=== PATIENT | male | born 1990 | race Caucasian/White ===

== ENCOUNTER → 2018-01-02 | Outpatient (CLI) | payer MEDICAID ==
--- NOTE | 2018-01-02 10:42 | Diagnostic Imaging Report ---
INDICATION: Right scrotal pain. TECHNIQUE: Real-time, grayscale, color-flow, and duplex Doppler evaluation of the scrotum was performed. FINDINGS: The right testicle measures 2.5 x 0.9 x 1.7 cm and the left testicle measures 2.5 x 1.2 x 1.8 cm. Both testes demonstrate fairly homogeneous echotexture. No discrete testicular mass is identified. There is normal vascularity to both testes. This is likely a hernia in the right inguinal region containing fat. No definite herniated bowel loops are seen. No hydrocele is detected. The epididymides are unremarkable. IMPRESSION: 1. No evidence of testicular mass or vascular compromise. 2. Findings are suggestive of a right inguinal hernia containing fat. Dictated by: Dictated on workstation # [id number]
== END ==
LOC: RAD 08:32
PROVIDERS: ATTEND Nurse Practitioner Family
DX: N50.82 Scrotal pain (principal)
CPT/HCPCS: 76870

== ENCOUNTER 2018-01-25 05:21 | Outpatient (CLI) | payer MEDICAID ==
[~2018-01-25] VITALS: Ht 193 cm; Wt 139.7 kg
[2018-01-25] MEDS ORDERED: LORA10TA7 PO (13:28)
[2018-01-25] MEDS ORDERED: FLUT1DIS26 IH (13:28)
[2018-01-25] MEDS ORDERED: RT-ALBUINH IH (13:28)
[2018-01-25] MEDS ORDERED: MELO15TA39 PO (13:28)
[2018-01-25] MEDS ORDERED: BUPR300T43 PO (13:28)
[2018-01-25] MEDS ORDERED: OMEP20CA12 PO (13:28)
[2018-01-25] MEDS ORDERED: RISP1TAB3 PO (13:28)
[2018-01-28] MEDS ORDERED: HYDR-3820 PO (13:38)
== END 2018-01-25 13:48 ==
LOC: PREOP 05:21
PROVIDERS: ATTEND Surgery
DX: Z01.818 Encounter for other preprocedural examination (principal); K40.30 Unilateral inguinal hernia, with obstruction, without gangrene, not specified as recurrent

== ENCOUNTER 2018-01-28 07:20 | Day surgery (SDC) | payer MEDICAID ==
[~2018-01-28] VITALS: Ht 193 cm; Wt 139.7 kg
[~2018-01-28 07:20] MED LIST: BUPR300T43 PO; FLUT1DIS26 IH; LORA10TA7 PO; MELO15TA39 PO; OMEP20CA12 PO; RISP1TAB3 PO; RT-ALBUINH IH
--- OUTSIDE RECORDS SUMMARY | 2018-01-28 07:23 | XMS REPORT ---
Author Author NATE ALMEIDA [facility] eClinicalWorks Address Unknown Phone Unavailable Care Team Providers Care Car Designer Name Role Phone NATE ALMEIDA CP Unavailable Allergies No Known Allergies Problems Problem Type Condition Code Onset Dates Condition Status Problem Other general medical examination for administrative purposes V70.3 Active Assessment Dental examination Z01.20 Active Problem Contact dermatitis and other eczema, due to unspecified cause 692.9 Active Problem Asthma, unspecified, unspecified status 493.90 Active Problem Encounter for dental examination Z01.20 Active Problem Other follow-up examination V67.59 Active Problem Need for prophylactic vaccination and inoculation, Influenza V04.81 Active Problem Routine general medical examination at health care facility V70.0 Active Problem Pleurisy without mention of effusion or current tuberculosis 511.0 Active Medications No Known Medications Procedures Procedure Coding System Code Date Dental Outreach adjust balance CPT-4 DENOR January 19, 2016 AMALGAM-ONE SURFACE PRIMARY/PERM CPT-4 D2140 January 19, 2016 Results No Known Results Summary Purpose eClinicalWorks Submission
--- OUTSIDE RECORDS SUMMARY | 2018-01-28 07:23 | XMS REPORT ---
Author Author SUPRIYA SINGLETARY [facility] Address [address] [place] [address] Care Team Providers Care Thread Clipper Name Role Phone SUPRIYA SINGLETARY Unavailable PROBLEMS Type Condition ICD9-CM Code PRL17-PC Code Onset Dates Condition Status SNOMED Code Problem Right foot pain M79.671 Active 10031853 Problem Gastroesophageal reflux disease without esophagitis K21.9 Active 480872884 Problem Dysthymia F34.1 Active 18236649 Problem Encounter for dental examination Z01.20 Active 761774118 Problem Mild persistent asthma without complication J45.30 Active 047626308 Problem Over weight E66.3 Active 312486316 ALLERGIES Unknown Allergies SOCIAL HISTORY No smoking Hx information available PLAN OF CARE VITAL SIGNS MEDICATIONS Medication Instructions Dosage Frequency Start Date End Date Duration Status Wellbutrin XL 300 MG Orally Once a day in the morning 1 tablet 15 Apr, 2014 30 days Active Loratadine 10 mg Orally Once a day 1 tablet 24h 30 days Active RESULTS No Results PROCEDURES No Known procedures IMMUNIZATIONS No Known Immunizations
--- OUTSIDE RECORDS SUMMARY | 2018-01-28 07:23 | XMS REPORT ---
Author Author NGOC KOROMA [facility] eClinicalWorks Address Unknown Phone Unavailable Care Team Providers Care Desktop Analyst Name Role Phone NGOC KOROMA Unavailable Allergies No Known Allergies Problems Problem Type Condition Code Onset Dates Condition Status Assessment Weight increase R63.5 Active Problem Other general medical examination for administrative purposes V70.3 Active Assessment Non morbid obesity due to excess calories E66.09 Active Problem Contact dermatitis and other eczema, [...] tuberculosis 511.0 Active Medications No Known Medications Results No Known Results Summary Purpose eClinicalWorks Submission
--- OUTSIDE RECORDS SUMMARY | 2018-01-28 07:23 | XMS REPORT ---
Author Author RENETTA DENNIS [facility] eClinicalWorks Address Unknown Phone Unavailable Care Team Providers Care Energy Control Officer Name Role Phone RENETTA DENNIS CP Unavailable Allergies No Known Allergies Problems Problem Type Condition Code Onset Dates Condition Status Problem Other general medical examination for administrative purposes V70.3 Active Problem Contact dermatitis and other eczema, [...] effusion or current tuberculosis 511.0 Active Medications Medication Code System Code Instructions Start Date End Date Status Dosage Loratadine [facility][NOTE 2] [address]-08 10 MG Orally Once a day Jul 13, 2014 1 tablet Results No Known Results Summary Purpose eClinicalWorks Submission
--- OUTSIDE RECORDS SUMMARY | 2018-01-28 07:23 | XMS REPORT ---
Author Author NATE ALMEIDA [facility] eClinicalWorks Address Unknown Phone Unavailable Care Team Providers Care Winding Machine Operator Name Role Phone NATE ALMEIDA Unavailable Allergies, Adverse Reactions, Alerts Substance Reaction Event Type Penicillin V Potassium anaphylaxis Drug Allergy Problems Problem Type Condition Code Onset Dates Condition Status Assessment Dental examination V72.2 Active Problem Asthma, unspecified, unspecified status 493.90 Active Problem Routine general medical examination at health care facility V70.0 Active Problem Contact dermatitis and other eczema, due to unspecified cause 692.9 Active Problem Need for prophylactic vaccination and inoculation, Influenza V04.81 Active Problem Other general medical examination for administrative purposes V70.3 Active Problem Pleurisy without mention of effusion or current tuberculosis 511.0 Active Problem Other follow-up examination V67.59 Active Medications Medication Code System Code Instructions Start Date End Date Status Dosage Lotrisone [facility] [address]-92 1-0.05 % Externally Twice a day Mar 18, 2015 1 application to affected area Carafate [facility] [address]-90 1 gram May 06, 2014 1 tablet by Oral route 2 times per day ProAir HFA [facility] [address]-63 90 mcg/actuation May 06, 2014 inhale 2 puffs by Inhalation route every 6 hours as needed PRN shortness of breath/ cough Wellbutrin XL [facility] [address]-23 150 mg May 06, 2014 2 Tablet by Oral route 1 time per day Loratadine [facility] [address]-40 10 MG Orally Once a day Jul 13, [address] [facility] [address]-71 15 mg May 26, 2014 take 1 tablet (15 mg) by oral route once daily Omeprazole [facility] [address]-73 20 mg 1 DRC orally once a day May 06, 2014 1 capsule by Oral route 1 time per day Antacid Double Strength [facility] [address]368 400-400-40 mg Mar 07, 2013 1 Tablet 4 times per day Advair Diskus [facility] [address]-01 250-50 MCG/DOSE Inhalation Twice a day January 26, 2015 1 puff Tylenol Extra Strength [facility] [address]-79 500 MG Orally 3 times a day prn pain or headache Sep 16, 2013 Take 1-[address] [facility] [address]-17 1-5 % September 29, 2014 1 jenny by Topical route 2 times per day Ibuprofen [facility] [address]-83 600 MG Orally every 6 hrs as needed January 04, 2014 take [address] [facility] [address]-17 1 MG Orally Once a day at bedtime Aug 25, 2014 1 Tablet Procedures Procedure Coding System Code Date INTRAORL-PERIAPICAL EA ADD FILM CPT-4 D0230 Apr 19, 2015 LTD ORAL EVALUATION - PROBLEM FOCUS CPT-4 D0140 Apr 19, 2015 Vital Signs Date/Time: Apr 19, 2015 Blood Pressure Diastolic 69 mmHg Blood Pressure Systolic 113 mmHg Results No Known Results Summary Purpose eClinicalWorks Submission
--- OUTSIDE RECORDS SUMMARY | 2018-01-28 07:23 | XMS REPORT ---
Author Author RENETTA DENNIS [facility] eClinicalWorks Address Unknown Phone Unavailable Care Team Providers Care Information Systems Security Analyst Name Role Phone RENETTA DENNIS Unavailable Allergies, Adverse Reactions, Alerts Substance Reaction Event Type Penicillin V Potassium anaphylaxis Drug Allergy Problems Problem Type Condition Code Onset Dates Condition Status Assessment Wellness examination Z00.00 Active Problem Other general medical examination for administrative purposes V70.3 Active Assessment High risk medication use Z79.899 Active Assessment Encounter for immunization Z23 Active Problem Contact dermatitis and other eczema, [...] Instructions Start Date End Date Status Dosage Omeprazole [facility] [address]-45 20 MG Orally Once a day May 06, 2014 1 capsule Risperidone [facility] [address]-69 1 MG Orally Once a day at bedtime Aug 25, 2014 1 Tablet Wellbutrin XL [facility] [address]-39 300 MG Orally Once a day May 06, 2014 1 tablet in the morning Meloxicam [facility] [address]-44 15 MG Orally Once a day May 26, 2014 take 1 tablet Carafate [facility] [address]-19 1 gram Orally Twice a day May 06, 2014 1 tablet Loratadine [facility] [address]-00 10 MG Orally Once a day Jul 13, 2014 1 tablet Advair Diskus [facility] [address]-78 250-50 MCG/DOSE Inhalation Twice a day January 26, 2015 1 puff Benzaclin [facility] [address]-55 1-5 % Externally 2 times a day September 29, 2014 1 jenny by Topical route 2 times per day Procedures Procedure Coding System Code Date COMPLETE CBC W/AUTO DIFF WBC CPT-4 94448 Aug 27, 2015 COMPREHEN METABOLIC PANEL CPT-4 71504 Aug 27, 2015 Preventive Care New Pt. Age 18-39 CPT-4 36015 Aug 27, 2015 SINGLE IMMUNIZATION ADMIN CPT-4 00469 Aug 27, 2015 ASSAY THYROID STIM HORMONE CPT-4 85423 Aug 27, 2015 LIPID PANEL CPT-4 20004 Aug 27, 2015 TDAP (BOOSTRIX) CPT-4 61434 Aug 27, 2015 VENIPUNCT, ROUTINE* CPT-4 39001 Aug 27, 2015 Vital Signs Date/Time: Aug 27, 2015 Temperature 97.3 F Weight 274.2 lbs Height 75 in BMI 34.27 Index Blood Pressure Diastolic 70 mmHg Blood Pressure Systolic 120 mmHg Cardiac Monitoring Heart Rate 80 bpm Results Name Result Date Reference Range Unit Abnormality Flag ROUTINE VENIPUNCTURE Immunizations Vaccine Administration Date TDAP (BOOSTRIX) Aug 27, 2015 Summary Purpose eClinicalWorks Submission
--- OUTSIDE RECORDS SUMMARY | 2018-01-28 07:23 | XMS REPORT ---
Author Author NATE ALMEIDA Organization [facility] Address [address] [place] [address] Care Team Providers Care Income Tax Expert Name Role Phone NATE ALMEIDA Unavailable PROBLEMS Type Condition ICD9-CM Code VQJ34-QW Code Onset Dates Condition Status SNOMED Code Problem Mild persistent asthma without complication J45.30 Active 108502046 Problem Dysthymia F34.1 Active 88612684 Problem Over weight E66.3 Active 951343884 Problem Encounter for dental examination Z01.20 Active 413362848 Problem Gastroesophageal reflux disease without esophagitis K21.9 Active 376026302 Problem Right foot pain M79.671 Active 00626688 ALLERGIES Unknown Allergies SOCIAL HISTORY No smoking Hx information available PLAN OF CARE Activity Details Follow Up Recall Reason: VITAL SIGNS MEDICATIONS Unknown Medications RESULTS No Results PROCEDURES Procedure Date Ordered Related Diagnosis Body Site AMALGAM-ONE SURFACE PRIMARY/PERM Jul 11, 2016 Billing Notes on claim Jul 11, 2016 Dental Outreach adjust balance Jul 11, 2016 IMMUNIZATIONS No Known Immunizations
--- OUTSIDE RECORDS SUMMARY | 2018-01-28 07:24 | XMS REPORT ---
Author Author SUPRIYA SINGLETARY Organization eClinicalWorks Address Unknown Phone Unavailable Care Team Providers Care Content Strategy Lead Name Role Phone SUPRIYA SINGLETARY CP Unavailable Allergies No Known Allergies Problems [...] Instructions Start Date End Date Status Dosage Sucralfate [facility] 04451824958 1 GM Orally 2 times a day, NEEDS APPT BEFORE ANY FURTHER REFILLS 1 tablet Omeprazole [facility] [address]-51 20 mg Orally Once a day, NEEDS APPT BEFORE ANY FURTHER REFILLS 1 tablet Advair Diskus [facility] 22914030231 250-50 MCG/DOSE Inhalation Twice a day, NEEDS APPT BEFORE ANY FURTHER REFILLS 1 puff Meloxicam [facility] 33725610968 15 MG Orally Once a day, NEEDS APPT BEFORE ANY FURTHER REFILLS take 1 tablet Results No Known Results Summary Purpose eClinicalWorks Submission
--- OUTSIDE RECORDS SUMMARY | 2018-01-28 07:24 | XMS REPORT ---
Author Author RENETTA DENNIS [facility] eClinicalWorks Address Unknown Phone Unavailable Care Team Providers Care Stave Cutting Supervisor Name Role Phone RENETTA DENNIS CP Unavailable Allergies No Known Allergies Problems Problem Type Condition Code Onset Dates Condition Status Problem Pleurisy without mention of effusion or current tuberculosis 511.0 Active Problem Asthma, unspecified, unspecified status 493.90 Active Problem Routine general medical examination at health care facility V70.0 Active Problem Dysthymia F34.1 Active Problem Gastroesophageal reflux disease without esophagitis K21.9 Active Problem Mild persistent asthma without complication J45.30 Active Problem Encounter for dental examination Z01.20 Active Problem Contact dermatitis and other eczema, due to unspecified cause 692.9 Active Problem Right foot pain M79.671 Active Problem Over weight E66.3 Active Problem Other general medical examination for administrative purposes V70.3 Active Problem Need for prophylactic vaccination and inoculation, Influenza V04.81 Active Problem Other follow-up examination V67.59 Active Medications Medication Code System Code Instructions Start Date End Date Status Dosage Acanya [facility] [address]-07 1.2-2.5 % Externally twice a day Mar 06, 2016 1 application to affected area Results No Known Results Summary Purpose eClinicalWorks Submission
--- OUTSIDE RECORDS SUMMARY | 2018-01-28 07:24 | XMS REPORT ---
Author Author RENETTA DENNIS [facility] eClinicalWorks Address Unknown Phone Unavailable Care Team Providers Care Geriatric Case Manager Name Role Phone RENETTA DENNIS CP Unavailable [...] Instructions Start Date End Date Status Dosage Risperidone [facility] 15418881561 1 MG Orally Once a day at bedtime, NEEDS APPT BEFORE ANY FURTHER REFILLS 1 Tablet Sucralfate [facility] 26106094805 1 GM Orally 2 times a day, NEEDS APPT BEFORE ANY FURTHER REFILLS 1 tablet Advair Diskus [facility] 88441718653 250-50 MCG/DOSE Inhalation Twice a day, NEEDS APPT BEFORE ANY FURTHER REFILLS 1 puff Meloxicam [facility] 82833003172 15 MG Orally Once a day, NEEDS APPT BEFORE ANY FURTHER REFILLS take 1 tablet Omeprazole [facility] [address]-44 20 mg Orally Once a day, NEEDS APPT BEFORE ANY FURTHER REFILLS 1 tablet Results No Known Results Summary Purpose eClinicalWorks Submission
--- OUTSIDE RECORDS SUMMARY | 2018-01-28 07:24 | XMS REPORT ---
Author Author SUPRIYA SINGLETARY Organization eClinicalWorks Address Unknown Phone Unavailable Care Team Providers Care Hydrostatic Tubing Tester Name Role Phone SUPRIYA SINGLETARY CP Unavailable [...] M79.671 Active Problem Over weight E66.3 Active Assessment Dysthymia F34.1 Active Problem Other general medical examination for administrative purposes V70.3 Active Problem Need for prophylactic vaccination and inoculation, Influenza V04.81 Active Problem Other follow-up examination V67.59 Active Medications Medication Code System Code Instructions Start Date End Date Status Dosage Risperidone [facility] 69026246468 1 MG Orally Once a day at bedtime 1 Tablet Benzaclin [facility] [address]-94 1-5 % Externally 2 times a day September 29, 2014 1 jenny by Topical route 2 times per day Results No Known Results Summary Purpose eClinicalWorks Submission
--- OUTSIDE RECORDS SUMMARY | 2018-01-28 07:24 | XMS REPORT ---
Author NILESH Ashley Organization eClinicalWorks Address Unknown Phone Unavailable Care Team Providers Care Singer And Unloader Name Role Phone NILESH LAMB CP Unavailable Allergies, Adverse Reactions, Alerts Substance Reaction Event Type Penicillin V Potassium anaphylaxis Drug Allergy Problems Problem Type Condition Code Onset Dates Condition Status Problem Other general medical examination for administrative purposes V70.3 Active Assessment Encounter for dental examination and cleaning with abnormal findings Z01.21 Active Problem Contact dermatitis and other eczema, [...] Start Date End Date Status Dosage Sucralfate [facility] [address]-95 1 GM/10ML Orally Twice a day 10 ml Procedures Procedure Coding System Code Date TOPICAL FLUORIDE VARNISH CPT-4 D1206 November 09, 2015 PROPHYLAXIS - ADULT CPT-4 D1110 November 09, 2015 Results No Known Results Summary Purpose eClinicalWorks Submission
--- OUTSIDE RECORDS SUMMARY | 2018-01-28 07:24 | XMS REPORT ---
Author Author SUPRIYA SINGLETARY [facility] Address [address] [place] [address] Care Team Providers Care Tire Layer Name Role Phone SUPRIYA SINGLETARY Unavailable PROBLEMS Type Condition ICD9-CM Code BPU95-GX Code Onset Dates Condition Status SNOMED Code Problem Dysthymia F34.1 Active 58743317 Problem Right foot pain M79.671 Active 25882379 Problem Over weight E66.3 Active 961643772 Problem Gastroesophageal reflux disease without esophagitis K21.9 Active 127421040 Problem Mild persistent asthma without complication J45.30 Active 389517332 ALLERGIES No Information ENCOUNTERS Encounter Location Date Diagnosis [facility] [id number] [place] [address] [id number] 10 Oct, 2017 Encounter for dental exam and cleaning w/o abnormal findings Z01.20 [place] [id number] [place] [address] [id number] 09 Oct, 2017 Acute nasopharyngitis J00 [place] [address] [id number] 13 Aug, 2017 Mild persistent asthma without complication J45.30 ; Dysthymia F34.1 and Gastroesophageal reflux disease without esophagitis K21.9 [place] [id number] [place] [address] [id number] 08 Aug, 2017 Right foot pain M79.671 ; Encounter for screening for lipoid disorders Z13.220 and Encounter for screening for cardiovascular disorders Z13.6 [place] [id number] [place] [address] [id number] 15 Jul, 2017 [facility] [address] [id number] 15 Jul, [id number] [place] [address] [id number] 05 Jun, 2017 Dental examination Z01.20 [facility] [address] [id number][place] [phone] Jun, Dental examination Z01.20 [facility] [address] [id number], [place] [id number] May, Encounter for immunization Z23 [facility] [address] [id number], [place] [address] Feb, [facility] [id number] [place] [address] [id number] Feb, Encounter for dental examination and cleaning without abnormal findings Z01.20 [facility] [address] [id number] [place] [address]27 [phone] Feb, [facility] [address] [id number], [place] [id number] Feb, Right foot pain M79.671 ; Dysthymia F34.1 ; Mild persistent asthma without complication J45.30 ; Gastroesophageal reflux disease without esophagitis K21.9 ; Encounter for screening for lipoid disorders Z13.220 ; Encounter for screening for cardiovascular disorders Z13.6 and Acne vulgaris L70.[address] [id number][place] [id number] Jan, Dental examination Z01.[address] [id number], [place] [phone] November, Dental examination Z01.20 [facility] [address] [id number], [place] [id number] November, Encounter for dental examination and cleaning without abnormal findings Z01.20 [facility] [address] [id number], [place] [id number] Aug, Dysthymia F34.1 ; Mild persistent asthma without complication J45.30 and Gastroesophageal reflux disease without esophagitis K21.9 [facility] [address] [id number], [place] [id number] Jul, Encounter for dental examination and cleaning without abnormal findings Z01.20 [facility] [address] [id number], [place] [id number] Jul, Physical exam, routine Z00.00 [facility] [place] [address] [id number], [place] [phone] Jul, Dysthymia F34.1 [facility] [address] [id number], [place] [phone] Jun, Dental examination Z01.20 [facility] [place] [id number] [place] [address] [id number] Jun, [facility] [address]65[place] [id number] Apr, Encounter for dental examination and cleaning without abnormal findings Z01.20 [facility] [address] [id number], [place] [phone] Apr, Encounter for dental examination Z01.20 [facility] [place] [id number] [place] [address] [id number] Apr, Encounter for immunization Z23 [facility] [address] [place] [id number] [place] [address] [id number] Apr, [facility] [place] [address] [place] [id number] [place] [address] [id number] Apr, Right foot pain M79.671 [facility] [id number] [place] [address] [id number] Feb, [facility] [address] [place] [id number] [place] [address] [id number] Feb, Dysthymia F34.1 [facility] [id number] [place] [address] [id number] Feb, Mild persistent asthma without complication J45.30 ; Dysthymia F34.1 ; Gastroesophageal reflux disease without esophagitis K21.9 ; Right foot pain M79.671 and Over weight E66.3 [facility] [id number] [place] [address] [id number] Feb, [facility] [address] [id number] [place] [address] [id number] Feb, [facility] [address] [place] [id number] [place] [address] [id number] Jan, [facility] [address] [id number][place] [id number] Jan, Encounter for dental examination and cleaning without abnormal findings Z01.20 [facility] [place] [id number], [place] [phone] Jan, [facility] [address] [id number], [place] [id number] Dec, Dental examination Z01.20 [facility] [address] [address] [id number], [place] [id number] Oct, Dental examination Z01.20 [facility] [address] [place] [id number] [place] [address] [id number] Oct, Encounter for dental examination and cleaning with abnormal findings Z01.21 [facility] [id number] [place] [address] [id number] Sep, [facility] [address] [id number] [place] [address] [id number] Aug, [facility] [id number] [place] [address] [id number] Aug, Elevated fasting glucose R73.01 [facility] [address] [place] [id number] [place] [address] [id number] 10 Aug, 2015 Elevated fasting glucose R73.01 [place] [address] [place] [id number] [place] [address] [id number] 08 Aug, 2015 Non morbid obesity due to excess calories E66.09 and Weight increase R63.5 [facility] [address] [place] [id number] [place] [address] [id number] 05 Aug, 2015 High risk medication use Z79.899 ; Wellness examination Z00.00 and Encounter for immunization Z23 [facility] [address] [place] [id number] [place] [address] [id number] Jul, [facility] [address] [place] [id number] [place] [address] [id number] Jun, [facility] [id number] [place] [address] [phone] May, [facility] [address] [id number], [place] [id number] May, [facility] [address] [id number], [place] [id number] Apr, [facility] [address] [id number], [place] [id number] Apr, Dental examination Z01.[address] [facility] [address] [id number], [place] [id number] Mar, Dental examination V72.2 [facility] [address] [id number], [place] [id number] Feb, [facility] [address] [id number], [place] [id number] Feb, Tinea corporis 110.5 [facility] [address] [id number], [place] [id number] Feb, [facility] [address] [id number], [place] [id number] Jan, [facility] [address] [id number], [place] [id number] Jan, [facility] [address] [id number], [place] [id number] November, [facility] [address] [id number], [place] [id number] November, [facility] [address] [id number], [place] [id number] November, [facility] [address] [facility] [id number], [place] [address] Oct, [facility] [address] [facility] [id number], [place] [address] Oct, [facility] [address] [id number], [place] [id number] Sep, [facility] [address] [facility] [id number], [place] [address] Sep, [facility] [address] [id number], [place] [id number] Aug, [facility] [place] [facility] [address] [facility] [id number] [place] [address] Aug, [facility] [address] [id number] [place] [id number] Jul, [facility] [place] [facility] [address] [facility] [id number] [place] [address] Jul, [facility] [address] [facility] [id number] [place] [id number] Jun, [facility] [place] [facility] [address] [facility] [id number] [place] [address] 14[address] Jun, [facility] [address] [facility] [id number] [place] [id number] May, [facility] [place] [facility] [address] [facility] [id number] [place] [address] May, [facility] [place] [facility] [address] [place] [address] Apr, [facility] [address] [id number] [place] [id number] Apr, [facility] [place] [facility] [address] [facility] [id number], [place] [address] Apr, [facility] [address] [facility] [id number], [place] [id number] Apr, [facility] [address] [facility] [id number], [place] [id number] Jan, [facility] [place] [facility] [address] [facility] [id number], [place] [address] 25[address] Jan, [facility] [address] [facility] [id number] [place] [id number] Dec, [facility] [place] [facility] [address] [facility] [id number], [place] [address] Dec, [facility] [address] [facility] [id number] [place] [id number] November, [facility] [place] [facility] [address] [facility] [id number], [place] [address] November, [facility] [address] [id number] [place] [id number] November, [facility] [address] [facility] [id number], [place] [address] November, [facility] [address] [id number] [place] [id number] Aug, [facility] [place] [facility] [address] [facility] [id number], [place] [address] Aug, [facility] [address] [id number] [place] [id number] Jul, [facility] [place] [facility] [address] [facility] [id number], [place] [address] Jul, [facility] [address] [facility] [id number] [place] [id number] Jul, [facility] [place] [facility] [address]00565100[place], [place] [address] Jul, [facility] [address] [facility] [id number] [place] [id number] Jun, [facility] [place] [facility] [address]00565100[place], [place] [address] Jun, [facility] [address] [facility] [id number] [place] [id number] Jun, [facility] [place] [facility] [address] [facility] [id number], [place] [address]- [address] Jun, [facility] [address] [facility] [id number], [place] [address] Apr, [facility] [place] [facility] [address] [facility] [id number], [place] [address] 3[address] Apr, [facility] [address] [facility] [id number], [place] [id number] Apr, [facility] [place] [facility] [address] [facility] [id number], [place] [address] 119[address] Apr, [facility] [place] [facility] [address] [facility] [id number], [place] [address]- [address] 18 Apr, 2013 [facility] [address] [id number] [place] [id number] 18 Apr, 2013 [facility] [place] [facility] [address] [id number], [place] [address] 15 Apr, 2013 [facility] [address] [id number] [place] [id number] 15 Apr, 2013 [facility] [address] [id number] [place] [id number] 05 Mar, 2013 [facility] [address] [id number] [place] [id number] Feb, [facility] [address] [id number] [place] [id number] Feb, [facility] [place] [facility] [address] [facility] [id number], [place] [address]- [address] May, [facility] [place] [facility] [address] [place] [id number] [place] [address]- 8069 24 Jun, 2010 [facility] [place] [facility] [address] [facility] [id number], [place] [address]- 9[address] May, [facility] [place] [facility] [address] [id number], [place] [address]- 8[address] 27 Apr, 2010 [facility] [place] [facility] [address] [place] [id number], [place] 304[place]- [address] Apr, [facility] [place] [facility] [address]65100[place], [place] [address]- 39[address] 19 Apr, 2010 [facility] [place] [facility] [address] [facility] [id number], [place] [address]- [address] 11 Apr, 2010 [facility] [place] [facility] [address] [facility] [id number], [place] [address]- 6[address] 15 Jun, 2009 [facility] [place] [facility] [address] [facility] [id number], [place] [address]- 6[address] 15 Jun, 2009 [facility] [place] [facility] [address] [place] [address] [id number], [place] [address] 08[address] Jun, [facility] [address] [facility] [id number] [place] [address] Jun, IMMUNIZATIONS Vaccine Route Administration Date Status FLUARIX QUAD (3 AND UP) 2016 IM Intramuscular May 24, 2017 Administered SOCIAL HISTORY Never Assessed REASON FOR VISIT Flu Shot Saima TOLBERT PLAN OF CARE VITAL SIGNS MEDICATIONS No Known Medications RESULTS No Results PROCEDURES Procedure Date Ordered Result Body Site FLUARIX QUAD (3 AND UP) 2017 May 24, 2017 SINGLE IMMUNIZATION ADMIN May 24, 2017 INSTRUCTIONS MEDICATIONS ADMINISTERED No Known Medications MEDICAL (GENERAL) HISTORY Type Description Date Medical History seasonal allergies Medical History acid reflux Medical History anxiety Medical History depression Medical History attention deficit hyperactivity disorder Medical History mild mental retardation Medical History Asthma Surgical History orthopedic surgery-right foot, corrective surgery
--- OUTSIDE RECORDS SUMMARY | 2018-01-28 07:24 | XMS REPORT ---
Author Author RENETTA DENNIS [facility] eClinicalWorks Address Unknown Phone Unavailable Care Team Providers Care [facility] Psychiatrist Name Role Phone RENETTA DENNIS CP Unavailable [...] Instructions Start Date End Date Status Dosage Wellbutrin XL [facility] [address]-89 300 MG Orally Once a day May 06, 2014 1 tablet in the morning Results No Known Results Summary Purpose eClinicalWorks Submission
--- OUTSIDE RECORDS SUMMARY | 2018-01-28 07:24 | XMS REPORT ---
Author Author NATE ALMEIDA Organization eClinicalWorks Address Unknown Phone Unavailable Care Team Providers Care Dog Food Shredder Operator Name Role Phone NATE ALMEIDA CP Unavailable [...] Medications Procedures Procedure Coding System Code Date BITEWINGS - FOUR FILMS CPT-4 D0274 November 09, 2015 COMP ORAL EVALUATION - NEW/EST PT CPT-4 D0150 November 09, 2015 Results No Known Results Summary Purpose eClinicalWorks Submission
--- OUTSIDE RECORDS SUMMARY | 2018-01-28 07:24 | XMS REPORT ---
Author Author SUPRIYA SINGLETARY Organization e[employer] Address Unknown Phone Unavailable Care Team Providers Care Certified Nursing Attendant Name Role Phone SUPRIYA SINGLETARY CP Unavailable [...] Instructions Start Date End Date Status Dosage Ibuprofen [facility] [address]-16 600 MG Orally 2 times a day PRN January 04, 2014 1 tablet Results No Known Results Summary Purpose eClinicalWorks Submission
--- OUTSIDE RECORDS SUMMARY | 2018-01-28 07:24 | XMS REPORT ---
Author Author RENETTA DENNIS [facility] eClinicalWorks Address Unknown Phone Unavailable Care Team Providers Care Load Manager Name Role Phone RENETTA DENNIS CP [...] Start Date End Date Status Dosage Loratadine [facility] 56760059850 10 MG Orally Once a day 1 tablet Results No Known Results Summary Purpose eClinicalWorks Submission
--- OUTSIDE RECORDS SUMMARY | 2018-01-28 07:25 | XMS REPORT ---
Author Author NATE ALMEIDA [facility] eClinicalWorks Address Unknown Phone Unavailable Care Team Providers Care Senior Policy Analyst Name Role Phone NATE ALMEIDA Unavailable Allergies No Known Allergies Problems Problem [...] Active Problem Over weight E66.3 Active Assessment Encounter for dental examination Z01.20 Active Problem Other general medical examination for administrative purposes V70.3 Active Problem Need for prophylactic vaccination and inoculation, Influenza V04.81 Active Problem Other follow-up examination V67.59 Active Medications Medication Code System Code Instructions Start Date End Date Status Dosage ProAir HFA [facility] [address]-90 90 mcg/actuation May 06, 2014 inhale 2 puffs by Inhalation route every 6 hours as needed PRN shortness of breath/ cough Wellbutrin XL [facility] 49035937647 300 MG Orally Once a day 1 tablet in the morning Omeprazole [facility] [address]-97 20 mg Orally Once a day, NEEDS APPT BEFORE ANY FURTHER REFILLS 1 tablet Acanya [facility] [address]-61 1.2-2.5 % Externally twice a day Mar 06, 2016 1 application to affected area Risperidone [facility] 87183481900 1 MG Orally Once a day at bedtime 1 Tablet Ibuprofen [facility] [address]-22 600 MG Orally 2 times a day PRN January 04, 2014 1 tablet Advair Diskus [facility] 63613916714 250-50 MCG/DOSE Inhalation Twice a day, NEEDS APPT BEFORE ANY FURTHER REFILLS 1 puff Loratadine [facility] 20229638801 10 MG Orally Once a day 1 tablet Meloxicam [facility] 14553347725 15 MG Orally Once a day, NEEDS APPT BEFORE ANY FURTHER REFILLS May 25, 2016 take 1 tablet Procedures Procedure Coding System Code Date INTRAORL-PERIAPICAL 1 FILM 56263 CPT-4 D0220 May 18, 2016 INTRAORL-PERIAPICAL 1 FILM 19096 CPT-4 D0220 May 18, 2016 PERIODIC ORAL EXAMINATION CPT-4 D0120 May 18, 2016 BITEWINGS - FOUR FILMS CPT-4 D0274 May 18, 2016 INTRAORL-PERIAPICAL 1 FILM 98445 CPT-4 D0220 May 18, 2016 Results No Known Results Summary Purpose eClinicalWorks Submission
--- OUTSIDE RECORDS SUMMARY | 2018-01-28 07:25 | XMS REPORT ---
Author Author NILESH LAMB Organization [facility] Address [address] [place] [address] Phone Unavailable Care Team Providers Care Tafe Lecturer Name Role Phone NILESH LAMB Unavailable Unavailable PROBLEMS Type Condition ICD9-CM Code EFK40-CC Code Onset Dates Condition Status SNOMED Code Problem Dysthymia F34.1 Active 65164116 Problem Right foot pain M79.671 Active 81130435 Problem Over weight E66.3 Active 257588920 Problem Gastroesophageal reflux disease without esophagitis K21.9 Active 169889204 Problem Mild persistent asthma without complication J45.30 Active 176975320 ALLERGIES Substance Reaction Event Type Date Status Penicillin V Potassium anaphylaxis Drug Allergy Feb, Active ENCOUNTERS Encounter Location Date Diagnosis [facility] [id number] [place] [address] [id number] Oct, Encounter for dental exam and cleaning w/o abnormal findings Z01.20 [place] [id number] [place] [address] [id number] 09 Oct, 2017 Acute nasopharyngitis J00 [facility] [id number] [place] [address] [id number] 13 Aug, 2017 Mild persistent asthma without complication J45.30 ; Dysthymia F34.1 and Gastroesophageal reflux disease without esophagitis K21.9 [place] [id number] [place] [address] [id number] 08 Aug, 2017 Right foot pain M79.671 ; Encounter for screening for lipoid disorders Z13.220 and Encounter for screening for cardiovascular disorders Z13.[address] [place] [address] [id number] 15 Jul, 2017 [facility] [id number] [place] [address] [id number] 15 Jul, [address] [id number][place] [address] Jun, Dental examination Z01.20 [facility] [address] [id number][place] [phone] Jun, Dental examination Z01.20 [facility] [address] [id number][place] [phone] May, Encounter for immunization Z23 [facility] [place] [address] [id number], [place] [address] Feb, [facility] [address] [id number][place] [id number] Feb, Encounter for dental examination and cleaning without abnormal findings Z01.20 [facility] [place] [address] [id number], [place] [address] 2546 Feb, [facility] [address] [id number][place] [address] Feb, Right foot pain M79.671 ; Dysthymia F34.1 ; Mild persistent asthma without complication J45.30 ; Gastroesophageal reflux disease without esophagitis K21.9 ; Encounter for screening for lipoid disorders Z13.220 ; Encounter for screening for cardiovascular disorders Z13.6 and Acne vulgaris L70.[address] [id number][place] [phone] Jan, Dental examination Z01.[address] [id number], [place] [address]8566[address] November, Dental examination Z01.20 [facility] [address] [id number][place] [id number] November, Encounter for dental examination and cleaning without abnormal findings Z01.20 [facility] [address] [id number][place] [address] Aug, Dysthymia F34.1 ; Mild persistent asthma without complication J45.30 and Gastroesophageal reflux disease without esophagitis K21.9 [facility] [address] [id number][place] [address] Jul, Encounter for dental examination and cleaning without abnormal findings Z01.20 [facility] [address] [id number], [place] [id number] Jul, Physical exam, routine Z00.00 [facility] [address] [id number], [place] [address] Jul, Dysthymia F34.1 [facility] [address] [address] [id number], [place] [phone] Jun, Dental examination Z01.20 [facility] [place] [address] [id number], [place] [address] Jun, [facility] [address] [id number], [place] [address] Apr, Encounter for dental examination Z01.20 [facility] [address] [id number], [place] [address] Apr, Encounter for dental examination and cleaning without abnormal findings Z01.20 [facility] [address] [id number], [place] [id number] Apr, Encounter for immunization Z23 [facility] [id number] [place] [address] [id number] Apr, [facility] [id number] [place] [address] [id number] Apr, Right foot pain M79.671 [facility] [address] [id number] [place] [address] [id number] Feb, [facility] [address] [id number], [place] [id number] Feb, Dysthymia F34.1 [facility] [address] [id number], [place] [phone] Feb, Mild persistent asthma without complication J45.30 ; Dysthymia F34.1 ; Gastroesophageal reflux disease without esophagitis K21.9 ; Right foot pain M79.671 and Over weight E66.3 [facility] [address] [id number] [place] [address] [id number] Feb, [facility] [address] [id number], [place] [phone] Feb, [facility] [id number] [place] [address] [id number] Jan, [facility] [address]005[address] [address] Jan, Encounter for dental examination and cleaning without abnormal findings Z01.20 [facility] [place] [id number], [place] [phone] Jan, [facility] [address] [facility] [address] [id number], [place] [phone] Dec, Dental examination Z01.20 [facility] [id number] [place] [address] [id number] Oct, Dental examination Z01.20 [facility] [address] [place] [address] [id number] Oct, Encounter for dental examination and cleaning with abnormal findings Z01.21 [facility] [id number] [place] [address] [id number] Sep, [facility] [id number] [place] [address] [id number] Aug, [facility] [id number] [place] [address] [phone] Aug, Elevated fasting glucose R73.01 [facility] [id number] [place] [address] [id number] 10 Aug, 2015 Elevated fasting glucose R73.01 [place] [id number] [place] [address] [id number] 08 Aug, 2015 Non morbid obesity due to excess calories E66.09 and Weight increase R63.5 [facility] [id number] [place] [address] [id number] 05 Aug, 2015 High risk medication use Z79.899 ; Wellness examination Z00.00 and Encounter for immunization Z23 [facility] [id number] [place] [address] [id number] Jul, [facility] [id number] [place] [address] [id number] Jun, [facility] [place] [id number] [place] [address] May, [facility] [address] [id number], [place] [phone] May, [facility] [address] [id number], [place] [id number] Apr, [facility] [address] [id number], [place] [phone] Apr, Dental examination Z01.[address] [facility] [address] [id number], [place] [phone] Mar, Dental examination V72.2 [facility] [address] [id number], [place] [id number] Feb, [facility] [address] [id number], [place] [phone] Feb, Tinea corporis 110.5 [facility] [address] [id number], [place] [id number] Feb, [facility] [address] [id number], [place] [id number] Jan, [facility] [address] [id number], [place] [id number] Jan, [facility] [address] [id number], [place] [phone] November, [facility] [address] [id number], [place] [phone] November, [facility] [address] [id number], [place] 538[address]18[address] November, [facility] [place] [facility] [address] [facility] [id number][place] [address] Oct, [facility] [place] [facility] [address] [facility] [id number][place] [address] Oct, [facility] [address] [id number], [place] [phone] Sep, [facility] [place] [facility] [address] [facility] [id number], [place] [address] Sep, [facility] [address] [id number], [place] [id number] Aug, [facility] [place] [facility] [address] [facility] [id number] [place] [address] Aug, [facility] [address] [id number], [place] [id number] Jul, [facility] [place] [facility] [address] [facility] [id number] [address] Jul, [facility] [address] [facility] [id number], [place] 558291853 Jun, [facility] [place] [facility] [address] [facility] [id number], [place] [address] Jun, [facility] [address] [facility] [id number], [place] [phone] May, [facility] [place] [facility] [address] [facility] [id number][place] [address] May, [facility] [place] [facility] [address]00565100[place], [place] [address] Apr, [facility] [address] [facility] [id number], [place] [id number] Apr, [facility] [place] [facility] [address] [facility] [id number][place] [address] 59[address] Apr, [facility] [address] [facility] [id number], [place] [phone] Apr, [facility] [address] [facility] [id number], [place] 703305440 Jan, [facility] [place] [facility] [address] [facility] [id number][place] [address]- [address] Jan, [facility] [address] [id number], [place] [id number] Dec, [facility] [place] [facility] [address] [facility] [id number], [place] [address]- 269[address] Dec, [facility] [address] [facility] [id number], [place] [id number] November, [facility] [place] [facility] [address] [facility] [id number] [address]- [address] November, [facility] [address] [id number] [place] [address] November, [facility] [address] [facility] [id number] [address]- [address] November, [facility] [address] [id number] [place] [id number] Aug, [facility] [address] [facility] [id number] [address]- [address] Aug, [facility] [address] [facility] [id number] [place] [id number] Jul, [facility] [address] [facility] [id number][place] [address]- [address] Jul, [facility] [address] [id number] [place] [id number] Jul, [facility] [address]00565100[place] [address] Jul, [facility] [address] [facility] [id number][place] 353979792 Jun, [facility] [place] [facility] [address]00565100[place], [place] [address]- [address] Jun, [facility] [address] [facility] [id number], [place] 59[address] Jun, [facility] [place] [facility] [address] [id number] [address]- 9966 Jun, [facility] [address] [facility] [id number], [place] 844375996 Apr, [facility] [place] [facility] [address] [facility] [id number][place] [address]- [address]15 Apr, [facility] [address] [facility] [id number], [place] 120[address]7924 Apr, [facility] [place] [facility] [address] [id number] [address]- [address] Apr, [facility] [place] [facility] [address] [facility] [id number][place] [address]- 8480 18 Apr, 2013 [facility] [address] [id number] [place] [id number] 18 Apr, 2013 [facility] [place] [facility] [address] [facility] [id number][place] [address]- 6[address] 15 Apr, 2013 [facility] [address] [id number] [place] [id number] Apr, [facility] [address] [id number] [place] [id number] Mar, [facility] [address] [id number] [place] 870[address]24[address] Feb, [facility] [address] [id number] [place] [id number] Feb, [facility] [place] [facility] [address] [facility] [id number][place] [address]- [address] May, [facility] [place] [facility] [address]00565100[place], [place] [address]- 90[address] 24 Jun, 2010 [facility] [place] [facility] [address] [facility] [id number][place] [address]- 5[address] May, [facility] [place] [facility] [address] [id number] [address]- 8310 27 Apr, 2010 [facility] [place] [facility] [address] [id number], [place] [address]- 0899 Apr, [facility] [place] [facility] [address] [id number], [place] [address]- 8687 19 Apr, 2010 [facility] [place] [facility] [address] [facility] [id number] [address]- 4[address] 11 Apr, 2010 [facility] [place] [facility] [address] [facility] [id number][place] 441825- [address] 15 Jun, 2009 [facility] [place] [facility] [address] [facility] [id number][place] 550927- 7463 15 Jun, 2009 [facility] [place] [facility] [address] [facility] [id number][place] 971444- [address]38 Jun, [facility] [place] [address] [facility] [id number] [place] [address]- 9[address] Jun, IMMUNIZATIONS No Known Immunizations SOCIAL HISTORY Never Assessed REASON FOR VISIT ADULT OUTREACH CLASS [facility] PLAN OF CARE VITAL SIGNS MEDICATIONS Medication Instructions Dosage Frequency Start Date End Date Duration Status Wellbutrin XL 300 mg Orally Once a day in the morning 1 tablet 30 Active Risperidone 1 MG Orally Once a day at bedtime 1 Tablet Active Meloxicam 15 MG Orally Once a day, NEEDS APPT BEFORE ANY FURTHER REFILLS take 1 tablet 90 Active Advair Diskus 250-50 mcg/dose INHALE ONE (1) PUFF BY MOUTH TWICE DAILY ( APPROX. EVERY 12 HRS) Active Acetaminophen 500 mg Orally 3 times a day 2 capsules as needed 8h Feb, Active Loratadine 10 mg Orally Once a day 1 tablet 24h 30 Active Epiduo 0.1-2.5 % Externally 2 times a day as directed 12h Feb, Mar, 30 days Active ProAir HFA 108 (90 Base) mcg/act inhale 2 puffs by Inhalation route every 6 hours as needed PRN shortness of breath/cough Apr, Active Omeprazole 20 mg Orally Once a day, NEEDS APPT BEFORE ANY FURTHER REFILLS 1 tablet Active RESULTS No Results PROCEDURES Procedure Date Ordered Result Body Site PROPHYLAXIS - ADULT Mar 06, 2017 TOPICAL FLUORIDE VARNISH Mar 06, 2017 INSTRUCTIONS MEDICATIONS ADMINISTERED No Known Medications MEDICAL (GENERAL) HISTORY Type Description Date Medical History seasonal allergies Medical History acid reflux Medical History anxiety Medical History depression Medical History attention deficit hyperactivity disorder Medical History mild mental retardation Medical History Asthma Surgical History orthopedic surgery-right foot, corrective surgery
--- OUTSIDE RECORDS SUMMARY | 2018-01-28 07:25 | XMS REPORT ---
Author Author NATE ALMEIDA Organization [facility] Address [address] [place] [address] Care Team Providers Care Drum Reel Cutter Name Role Phone NATE ALMEIDA Unavailable PROBLEMS Type Condition ICD9-CM Code XUQ59-QL Code Onset Dates Condition Status SNOMED Code Problem Right foot pain M79.671 Active 53248698 Problem Gastroesophageal reflux disease without esophagitis K21.9 Active 754059463 Problem Dysthymia F34.1 Active 18230842 Problem Encounter for dental examination Z01.20 Active 759845305 Problem Mild persistent asthma without complication J45.30 Active 344983829 Problem Over weight E66.3 Active 207990885 ALLERGIES No Information SOCIAL HISTORY Never Assessed PLAN OF CARE Activity Details Follow Up Restorative Reason: VITAL SIGNS MEDICATIONS Medication Instructions Dosage Frequency Start Date End Date Duration Status Risperidone 1 MG Orally Once a day at bedtime 1 Tablet Active Risperdal 1 MG ...TAKE ONE (1) TABLET BY MOUTH ONCE DAILY AT BEDTIME... Active Benzaclin 1-5 % Externally 2 times a day 1 jenny by Topical route 2 times per day 12h Active Ibuprofen 600 MG Orally 2 times a day PRN 1 tablet Dec, Active Meloxicam 15 MG Orally Once a day, NEEDS APPT BEFORE ANY FURTHER REFILLS take 1 tablet 90 Active Wellbutrin XL 300 MG Orally Once a day in the morning 1 tablet Apr, 30 days Active ProAir HFA 90 mcg/actuation inhale 2 puffs by Inhalation route every 6 hours as needed PRN shortness of breath/cough Apr, Active Acanya 1.2-2.5 % Externally twice a day 1 application to affected area 12h Feb, Active Omeprazole 20 mg Orally Once a day, NEEDS APPT BEFORE ANY FURTHER REFILLS 1 tablet Active Wellbutrin XL 300 MG Orally Once a day in the morning 1 tablet 30 Active BuPROPion HCl (XL) 300 MG TAKE ONE (1) TABLET EACH MORNING.... Active Advair Diskus 250-50 MCG/DOSE INHALE ONE (1) PUFF BY MOUTH TWICE DAILY ( APPROX. EVERY 12 HRS) Active Loratadine 10 mg Orally Once a day 1 tablet 24h 30 days Active RESULTS No Results PROCEDURES Procedure Date Ordered Result Body Site PERIODIC ORAL EXAMINATION December 13, 2016 BITEWINGS - FOUR FILMS December 13, 2016 IMMUNIZATIONS No Known Immunizations MEDICAL (GENERAL) HISTORY Type Description Date Medical History seasonal allergies Medical History acid reflux Medical History anxiety Medical History depression Medical History attention deficit hyperactivity disorder Medical History mild mental retardation Medical History Asthma Surgical History orthopedic surgery-right foot, corrective surgery
--- OUTSIDE RECORDS SUMMARY | 2018-01-28 07:25 | XMS REPORT ---
Author NILESH Ashley [facility] eClinicalWorks Address Unknown Phone Unavailable Care Team Providers Care Face Cleaner Name Role Phone NILESH LAMB CP Unavailable [...] E66.3 Active Assessment Encounter for dental examination and cleaning without abnormal findings Z01.20 Active Problem Other general medical examination for administrative purposes V70.3 Active Problem Need for prophylactic vaccination and inoculation, Influenza V04.81 Active Problem Other follow-up examination V67.59 Active Medications Medication Code System Code Instructions Start Date End Date Status Dosage Risperidone [facility] 91858793786 1 MG Orally Once a day at bedtime, NEEDS APPT BEFORE ANY FURTHER REFILLS 1 Tablet Sucralfate [facility] 13674198887 1 GM Orally 2 times a day, NEEDS APPT BEFORE ANY FURTHER REFILLS 1 tablet Advair Diskus [facility] 29419840460 250-50 MCG/DOSE Inhalation Twice a day, NEEDS APPT BEFORE ANY FURTHER REFILLS 1 puff Claritin [facility] [address]-13 10 MG Orally Once a day 1 tablet Wellbutrin XL [facility] [address]-25 300 MG Orally Once a day May 06, 2014 1 tablet in the morning Sucralfate [facility] [address]-67 1 GM/10ML Orally Twice a day 10 ml Meloxicam [facility] 17721507786 15 MG Orally Once a day, NEEDS APPT BEFORE ANY FURTHER REFILLS take 1 tablet Procedures Procedure Coding System Code Date TOPICAL FLUORIDE VARNISH CPT-4 D1206 February 09, 2016 PROPHYLAXIS - ADULT CPT-4 D1110 February 09, 2016 Results No Known Results Summary Purpose eClinicalWorks Submission
--- OUTSIDE RECORDS SUMMARY | 2018-01-28 07:25 | XMS REPORT ---
Author Author SUPRIYA SINGLETARY [facility] eClinicalWorks Address Unknown Phone Unavailable Care Team Providers Care Mold Engraver Name Role Phone SUPRIYA SINGLETARY CP Unavailable Allergies, Adverse Reactions, Alerts Substance [...] Active Problem Over weight E66.3 Active Assessment Over weight E66.3 Active Assessment Right foot pain M79.671 Active Assessment Mild persistent asthma without complication J45.30 Active Problem Other general medical examination for administrative purposes V70.3 Active Assessment Gastroesophageal reflux disease without esophagitis K21.9 Active Problem Need for prophylactic vaccination and inoculation, Influenza V04.81 Active Assessment Dysthymia F34.1 Active Problem Other follow-up examination V67.59 Active Medications Medication Code System Code Instructions Start Date End Date Status Dosage Benzaclin [facility] [address]-76 1-5 % Externally 2 times a day September 29, 2014 1 jenny by Topical route 2 times per day Omeprazole [facility] [address]-06 20 mg Orally Once a day, NEEDS APPT BEFORE ANY FURTHER REFILLS 1 tablet ProAir HFA [facility] [address]-76 90 mcg/actuation May 06, 2014 inhale 2 puffs by Inhalation route every 6 hours as needed PRN shortness of breath/ cough Wellbutrin XL [facility] [address]-54 300 MG Orally Once a day May 06, 2014 1 tablet in the morning Meloxicam [facility] 32927404236 15 MG Orally Once a day, NEEDS APPT BEFORE ANY FURTHER REFILLS May 25, 2016 take 1 tablet Advair Diskus [facility] 93466558384 250-50 MCG/DOSE Inhalation Twice a day, NEEDS APPT BEFORE ANY FURTHER REFILLS 1 puff Claritin [facility] [address]-64 10 MG Orally Once a day 1 tablet Loratadine [facility] 46819441416 10 MG Orally Once a day 1 tablet Sucralfate [facility] [address]-93 1 GM/10ML Orally Twice a day 10 ml Risperidone [facility] 95293694736 1 MG Orally Once a day at bedtime, NEEDS APPT BEFORE ANY FURTHER REFILLS 1 Tablet Ibuprofen [facility] [address]-47 600 MG Orally every 6 hrs as needed January 04, 2014 take 1 tablet Procedures Procedure Coding System Code Date Office Visit, Est Pt., Level 3 CPT-4 74494 Feb 28, 2016 Vital Signs Date/Time: Feb 28, 2016 Cardiac Monitoring Heart Rate 82 bpm Weight 282.3 lbs Height 75 in BMI 35.28 Index Blood Pressure Diastolic 70 mmHg Blood Pressure Systolic 124 mmHg Results No Known Results Summary Purpose eClinicalWorks Submission
--- OUTSIDE RECORDS SUMMARY | 2018-01-28 07:25 | XMS REPORT ---
Author NILESH Ashley [facility] eClinicalWorks Address Unknown Phone Unavailable Care Team Providers Care Team Guide Name Role Phone NILESH LAMB CP Unavailable [...] Instructions Start Date End Date Status Dosage Claritin [facility] [address]-20 10 MG Orally Once a day 1 tablet Wellbutrin XL [facility] [address]-72 300 MG Orally Once a day May 06, 2014 1 tablet in the morning Wellbutrin XL [facility] 52828392334 300 MG Orally Once a day 1 tablet in the morning Risperidone [facility] 61041161453 1 MG Orally Once a day at bedtime 1 Tablet Advair Diskus [facility] 37142808815 250-50 MCG/DOSE INHALE ONE (1) PUFF BY MOUTH TWICE DAILY (APPROX. EVERY 12 HRS) Advair Diskus [facility] 70990437826 250-50 MCG/DOSE Inhalation Twice a day, NEEDS APPT BEFORE ANY FURTHER REFILLS 1 puff Ibuprofen [facility] [address]-38 600 MG Orally 2 times a day PRN January 04, 2014 1 tablet Meloxicam [facility] 06074135352 15 MG Orally Once a day, NEEDS APPT BEFORE ANY FURTHER REFILLS May 25, 2016 take 1 tablet Acanya [facility] [address]-78 1.2-2.5 % Externally twice a day Mar 06, 2016 1 application to affected area Sucralfate [facility] [address]-68 1 GM/10ML Orally Twice a day 10 ml Loratadine [facility] 30013350707 10 MG Orally Once a day 1 tablet ProAir HFA [facility] [address]-06 90 mcg/actuation May 06, 2014 inhale 2 puffs by Inhalation route every 6 hours as needed PRN shortness of breath/ cough Omeprazole [facility] [address]-69 20 mg Orally Once a day, NEEDS APPT BEFORE ANY FURTHER REFILLS 1 tablet Procedures Procedure Coding System Code Date TOPICAL FLUORIDE VARNISH CPT-4 D1206 May 18, 2016 PROPHYLAXIS - ADULT CPT-4 D1110 May 18, 2016 Results No Known Results Summary Purpose eClinicalWorks Submission
--- OUTSIDE RECORDS SUMMARY | 2018-01-28 07:26 | XMS REPORT ---
Author Author PARAMJIT JUNIOR Organization e[employer] Address Unknown Phone Unavailable Care Team Providers Care Professor Of Social Work Name Role Phone PARAMJIT JUNIOR CP Unavailable Allergies No Known Allergies Problems [...] Over weight E66.3 Active Assessment Encounter for immunization Z23 Active Problem Other general medical examination for administrative purposes V70.3 Active Problem Need for prophylactic vaccination and inoculation, Influenza V04.81 Active Problem Other follow-up examination V67.59 Active Medications No Known Medications Procedures Procedure Coding System Code Date SINGLE IMMUNIZATION ADMIN CPT-4 31901 May 11, 2016 FLUARIX QUAD P-FREE 3 AND UP .50 2015 CPT-4 88572 May 11, 2016 Results No Known Results Immunizations Vaccine Administration Date FLUZONE QUAD 3 AND UP 0.50 2015May 11, 2016 Summary Purpose eClinicalWorks Submission
--- OUTSIDE RECORDS SUMMARY | 2018-01-28 07:26 | XMS REPORT ---
Author Author ROSALINA STEWARD [facility] Address [address] [place] [address] Care Team Providers Care Hostage Negotiator Name Role Phone ROSALINA STEWARD Unavailable PROBLEMS Type Condition ICD9-CM Code ZEL88-HX Code Onset Dates Condition Status SNOMED Code Problem Dysthymia F34.1 Active 52392202 Problem Right foot pain M79.671 Active 43269854 Problem Over weight E66.3 Active 618402351 Problem Gastroesophageal reflux disease without esophagitis K21.9 Active 689638990 Problem Mild persistent asthma without complication J45.30 Active 540425116 ALLERGIES Substance Reaction Event Type Date Status Penicillin V Potassium anaphylaxis Drug Allergy Jun, Active ENCOUNTERS Encounter Location Date Diagnosis [facility] [address] [id number] Dec, [address] [id number] Dec, Tender scrotum N50.[address] [id number] November, Diarrhea of presumed infectious origin R19.7 [facility] [id number] [place] [address] [id number] Oct, Encounter for dental exam and cleaning w/o abnormal findings Z01.20 [facility] [id number] [place] [address] [id number] Oct, Acute nasopharyngitis J00 [address] [id number] 13 Aug, 2017 Mild persistent asthma without complication J45.30 ; Dysthymia F34.1 and Gastroesophageal reflux disease without esophagitis K21.[address] [id number] 08 Aug, 2017 Right foot pain M79.671 ; Encounter for screening for lipoid disorders Z13.220 and Encounter for screening for cardiovascular disorders Z13.6 [facility] [address] [id number] [place] [id number] Jul, [facility] [address] [id number] [place] [phone] Jul, [facility] [address] [facility] [id number] [place] [id number] Jun, Dental examination Z01.20 [facility] [address] [id number][place] [phone] Jun, Dental examination Z01.20 [facility] [address] [id number] [place] [address] [phone] May, Encounter for immunization Z23 [facility] [id number] [place] [phone] Feb, [facility] [id number] [place] [address] [phone] Feb, Encounter for dental examination and cleaning without abnormal findings Z01.20 [facility] [address] [id number] [place] [address]- 5336 Feb, [facility] [id number] [place] [address] [id number] Feb, Right foot pain M79.671 ; Dysthymia F34.1 ; Mild persistent asthma without complication J45.30 ; Gastroesophageal reflux disease without esophagitis K21.9 ; Encounter for screening for lipoid disorders Z13.220 ; Encounter for screening for cardiovascular disorders Z13.6 and Acne vulgaris L70.0 [facility] [address] [facility] [id number] [place] [phone] Jan, Dental examination Z01.20 [facility] [address] [facility] [id number] [place] [phone] November, Dental examination Z01.20 [facility] [address] [id number][place] [phone] November, Encounter for dental examination and cleaning without abnormal findings Z01.20 [facility] [address] [id number] [place] [phone] Aug, Dysthymia F34.1 ; Mild persistent asthma without complication J45.30 and Gastroesophageal reflux disease without esophagitis K21.9 [facility] [address] [id number][place] [phone] Jul, Encounter for dental examination and cleaning without abnormal findings Z01.20 [facility] [id number] [place] [address] [phone] Jul, Physical exam, routine Z00.00 [facility] [id number] [place] [address] [id number] Jul, Dysthymia F34.1 [facility] [address] [facility] [id number] [place] [address] [phone] Jun, Dental examination Z01.20 [facility] [address] [id number] [place] [address] [id number] Jun, [facility] [address] [id number] [place] [address] [phone] Apr, Encounter for dental examination and cleaning without abnormal findings Z01.20 [facility] [address] [facility] [id number] [place] [address] [phone] Apr, Encounter for dental examination Z01.20 [facility] [id number] [place] [address] [phone] Apr, Encounter for immunization Z23 [facility] [id number] [place] [address] [id number] Apr, [facility] [id number] [place] [address] [phone] Apr, Right foot pain M79.671 [facility] [address] [id number] [place] [address] [phone] Feb, [facility] [address] [id number] [place] [address] [id number] Feb, Dysthymia F34.1 [facility] [address] [id number] [place] [address] [phone] Feb, Mild persistent asthma without complication J45.30 ; Dysthymia F34.1 ; Gastroesophageal reflux disease without esophagitis K21.9 ; Right foot pain M79.671 and Over weight E66.3 [facility] [address] [id number] [place] [phone] Feb, [facility] [id number] [place] [address] [phone] Feb, [facility] [id number] [place] [address] [phone] Jan, [facility] [address] [id number][place] [phone] Jan, Encounter for dental examination and cleaning without abnormal findings Z01.20 [facility] [id number] [place] [address] [phone] Jan, [address] [id number] [place] [phone] Dec, Dental examination Z01.[id number] [place] [address] [phone] Oct, Dental examination Z01.20 [facility] [address] [id number] [place] [address] [phone] Oct, Encounter for dental examination and cleaning with abnormal findings Z01.21 [id number] [place] [address] [id number] Sep, [id number] [place] [address] [phone] Aug, [facility] [id number] [place] [address] [id number] Aug, Elevated fasting glucose R73.01 [id number] [place] [address] [phone] Aug, Elevated fasting glucose R73.01 [id number] [place] [address] [id number] 08 Aug, 2015 Non morbid obesity due to excess calories E66.09 and Weight increase R63.5 [address] [id number] [place] [address] [phone] Aug, High risk medication use Z79.899 ; Wellness examination Z00.00 and Encounter for immunization Z23 [facility] [id number] [place] [address] [id number] Jul, [facility] [id number] [place] [address] [id number] Jun, [facility] [id number] [place] [address] [phone] May, [facility] [id number] [place] [address] [id number] May, [facility] [id number] [place] [address] [phone] Apr, [facility] [address] [facility] [id number] [place] [phone] Apr, Dental examination Z01.20 [facility] [id number] [place] [address] [phone] Mar, Dental examination V72.2 [facility] [id number] [place] [phone] Feb, [facility] [id number] [place] [address] [phone] Feb, Tinea corporis 110.5 [facility] [id number] [place] [address] [id number] Feb, [facility] [address] [id number] [place] [address] [id number] Jan, [facility] [id number] [place] [address] [id number] Jan, [facility] [address] [id number] [place] [phone] November, [facility] [id number] [place] [phone] November, [facility] [id number] [place] [phone] November, [facility] [address]005[address] [phone] Oct, [facility] [place] [facility] [address] [facility] [id number], [place] [address] Oct, [facility] [address] [facility] [id number] [place] [id number] Sep, [facility] [place] [facility] [address] [facility] [id number], [place] [address] Sep, [facility] [address] [facility] [id number] [place] [phone] Aug, [facility] [place] [facility] [address] [facility] [id number] [place] [address] Aug, [facility] [address] [facility] [id number] [place] [phone] Jul, [facility] [place] [facility] [address] [id number], [place] [address] Jul, [facility] [address] [id number] [place] [phone] Jun, [facility] [place] [facility] [address] [facility] [id number], [place] [address] Jun, [facility] [address] [facility] [id number] [place] [phone] May, [facility] [place] [facility] [address]00565100[place], [place] [address] May, [facility] [place] [facility] [address] [facility] [id number], [place] [address] Apr, [facility] [address] [facility] [id number] [place] [phone] Apr, [facility] [place] [facility] [address] [facility] [id number], [place] [address]- 7415 Apr, [facility] [address] [facility] [id number] [place] [phone] Apr, [facility] [address] [facility] [id number] [place] [phone] Jan, [facility] [place] [facility] [address] [facility] [id number], [place] [address]- [address] Jan, [facility] [address] [id number] [place] [id number] Dec, [facility] [place] [facility] [address] [facility] [id number], [place] [address]- [address] Dec, [facility] [address] [id number] [place] [id number] November, [facility] [place] [facility] [address] [facility] [id number], [place] [address]- [address]86 November, [facility] [address] [id number] [place] [id number] November, [facility] [place] [facility] [address] [facility] [id number], [place] [address] 2546 November, [facility] [address] [id number] [place] [id number] Aug, [facility] [place] [facility] [address] [facility] [id number], [place] [address]- 98[address] Aug, [facility] [address] [id number] [place] [id number] Jul, [facility] [place] [facility] [address] [facility] [id number], [place] [address]- [address] Jul, [facility] [address] [id number] [place] [id number] Jul, [facility] [place] [facility] [address] [facility] [id number], [place] [address]- 1266 Jul, [facility] [address] [id number] [place] [id number] Jun, [facility] [place] [facility] [address] [facility] [id number], [place] [address]- 6[address] Jun, [facility] [address] [id number] [place] [phone] Jun, [facility] [place] [facility] [address] [facility] [id number], [place] [address]- [address]66 Jun, [facility] [address] [id number] [place] [id number] Apr, [facility] [place] [facility] [address] [facility] [id number], [place] [address]- [address] Apr, [facility] [address] [id number] [place] [id number] Apr, [facility] [place] [facility] [address] [id number] [address]- [address] Apr, [facility] [place] [facility] [address] [facility] [id number], [place] [address]- [address] Apr, [facility] [address] [id number] [place] [id number] Apr, [facility] [place] [facility] [address] [facility] [id number], [place] [address]- 7896 Apr, [facility] [address] [id number] [place] [id number] Apr, [facility] [address] [id number] [place] [phone] Mar, [facility] [address] [id number] [place] [id number] Feb, [facility] [address] [id number] [place] [id number] Feb, [facility] [place] [facility] [address] [facility] [id number], [place] [address]- 1284 May, [facility] [place] [facility] [address] [facility] [id number], [place] [address]- 5096 Jun, [facility] [place] [address] [facility] [id number], [place] [address]- 6573 May, [facility] [place] [facility] [address] [facility] [id number][place]- [address] Apr, [facility] [place] [facility] [address] [facility] [id number], [place]- 8768 Apr, [facility] [place] [facility] [address]00565100[place], [place] [address]- 8[address] Apr, [facility] [place] [facility] [address] [facility] [id number] [place] [address]- [address] 11 Apr, 2010 [facility] [address] [facility] [id number], [place] [address]- 5[address] Jun, [facility] [address] [facility] [id number], [place] [address]- [address] Jun, [facility] [address] [facility] [id number], [place] [address]- 5[address] Jun, [facility] [address] [facility] [id number], [place] [address]- 8768 Jun, IMMUNIZATIONS No Known Immunizations SOCIAL HISTORY Never Assessed REASON FOR VISIT ADULT OUTREACH CLASS [facility] PLAN OF CARE Activity Details Follow Up 3 Months Reason:ON SITE RECALL VITAL SIGNS MEDICATIONS Medication Instructions Dosage Frequency Start Date End Date Duration Status Acetaminophen 500 mg Orally 3 times a day 2 capsules as needed 8h Feb, Active Meloxicam 15 MG Orally Once a day, NEEDS APPT BEFORE ANY FURTHER REFILLS take 1 tablet 90 Active Risperidone 1 MG Orally Once a day at bedtime 1 Tablet Active ProAir HFA 108 (90 Base) mcg/act inhale 2 puffs by Inhalation route every 6 hours as needed PRN shortness of breath/cough Apr, Active Wellbutrin XL 300 mg Orally Once a day in the morning 1 tablet 30 Active Epiduo 0.1-2.5 % Externally 2 times a day as directed 12h 30 Active Omeprazole 20 mg Orally Once a day, NEEDS APPT BEFORE ANY FURTHER REFILLS 1 tablet Active Loratadine 10 mg Orally Once a day 1 tablet 24h 90 Active Advair Diskus 250-50 mcg/dose INHALE ONE (1) PUFF BY MOUTH TWICE DAILY ( APPROX. EVERY 12 HRS) Active RESULTS No Results PROCEDURES Procedure Date Ordered Result Body Site PERIODIC ORAL EXAMINATION Jun 29, 2017 BITEWINGS - FOUR FILMS Jun 29, 2017 INSTRUCTIONS MEDICATIONS ADMINISTERED No Known Medications MEDICAL (GENERAL) HISTORY Type Description Date Medical History seasonal allergies Medical History acid reflux Medical History anxiety Medical History depression Medical History attention deficit hyperactivity disorder Medical History mild mental retardation Medical History Asthma Surgical History orthopedic surgery-right foot, corrective surgery
--- OUTSIDE RECORDS SUMMARY | 2018-01-28 07:26 | XMS REPORT ---
Author Author NATE ALMEIDA Organization [facility] Address [address] [place] [address] Care Team Providers Care Sand Mixer Name Role Phone NATE ALMEIDA Unavailable PROBLEMS Type Condition ICD9-CM Code HIC73-VU Code Onset Dates Condition Status SNOMED Code Problem Dysthymia F34.1 Active 92360264 Problem Right foot pain M79.671 Active 24782682 Problem Over weight E66.3 Active 715976830 Problem Gastroesophageal reflux disease without esophagitis K21.9 Active 174556715 Problem Mild persistent asthma without complication J45.30 Active 139005759 ALLERGIES Substance Reaction Event Type Date Status Penicillin V Potassium anaphylaxis Drug Allergy Jan, Active ENCOUNTERS Encounter Location Date Diagnosis [facility] [address] [facility] [id number] [place] [address] 10 Oct, 2017 [facility] [id number] [place] [address] [id number] 13 Aug, 2017 Mild persistent asthma without complication J45.30 ; Dysthymia F34.1 and Gastroesophageal reflux disease without esophagitis K21.9 [facility] [id number] [place] [address] [id number] 08 Aug, 2017 Right foot pain M79.671 ; Encounter for screening for lipoid disorders Z13.220 and Encounter for screening for cardiovascular disorders Z13.6 [facility] [address] [facility] [id number], [place] [id number] 15 Jul, 2017 [facility] [id number] [place] [address] [id number] Jul, [facility] [address] [id number] [id number] 05 Jun, 2017 Dental examination Z01.20 [facility] [address] [id number] [place] [address] [id number] Jun, Dental examination Z01.20 [facility] [address] [facility] [id number], [place] [phone] May, Encounter for immunization Z23 [facility] [address] [id number] [address] Feb, [facility] [address] [id number] [place] [phone] Feb, Encounter for dental examination and cleaning without abnormal findings Z01.20 [facility] [address] [id number] [place] [address] Feb, [address] [place] [address] [id number] Feb, Right foot pain M79.671 ; Dysthymia F34.1 ; Mild persistent asthma without complication J45.30 ; Gastroesophageal reflux disease without esophagitis K21.9 ; Encounter for screening for lipoid disorders Z13.220 ; Encounter for screening for cardiovascular disorders Z13.6 and Acne vulgaris L70.[address] [id number][place] [phone] Jan, Dental examination Z01.[address] [id number], [place] [phone] November, Dental examination Z01.20 [facility] [address] [id number] [place] [id number] November, Encounter for dental examination and cleaning without abnormal findings Z01.20 [facility] [address] [id number], [place] [phone] Aug, Dysthymia F34.1 ; Mild persistent asthma without complication J45.30 and Gastroesophageal reflux disease without esophagitis K21.9 [facility] [address] [id number] [place]END[place] [phone] Jul, Encounter for dental examination and cleaning without abnormal findings Z01.20 [facility] [address] [id number], [place] [phone] Jul, Physical exam, routine Z00.[address] [id number], [place] [phone] Jul, Dysthymia F34.1 [facility] [address] [id number][place] [phone] Jun, Dental examination Z01.20 [facility] [address] [id number], [place] [phone] Jun, [facility] [address] [id number], [place] [phone] Apr, Encounter for dental examination Z01.20 [facility] [address] [id number] [place] [phone] Apr, Encounter for dental examination and cleaning without abnormal findings Z01.20 [facility] [address] [id number], [place] [phone] Apr, Encounter for immunization Z23 [facility] [address] [id number] [place] [address] [id number] Apr, [facility] [address] [id number] [place] [address] [id number] Apr, Right foot pain M79.671 [facility] [id number] [place] [address] [id number] Feb, [facility] [address] [id number] [place] [address] [id number] Feb, Dysthymia F34.1 [facility] [address] [id number], [place] [phone] Feb, Mild persistent asthma without complication J45.30 ; Dysthymia F34.1 ; Gastroesophageal reflux disease without esophagitis K21.9 ; Right foot pain M79.671 and Over weight E66.3 [facility] [address] [id number], [place] [id number] Feb, [facility] [id number] [place] [address] [id number] Feb, [facility] [address] [id number], [place] [phone] Jan, [facility] [address] [id number] BEND[place] [phone] Jan, Encounter for dental examination and cleaning without abnormal findings Z01.20 [facility] [id number], [place] [phone] Jan, [facility] [address] [facility] [address] [id number], [place] [phone] Dec, Dental examination Z01.20 [facility] [address] [facility] [address] [id number], [place] [phone] Oct, Dental examination Z01.20 [facility] [address] [id number] [place] [phone] Oct, Encounter for dental examination and cleaning with abnormal findings Z01.21 [facility] [id number] [place] [address] [id number] Sep, [facility] [id number] [place] [address] [id number] Aug, [facility] [id number] [place] [address] [id number] Aug, Elevated fasting glucose R73.[address] [place] [address] [id number] 10 Aug, 2015 Elevated fasting glucose R73.01 [address] [id number] [place] [address] [id number] 08 Aug, 2015 Non morbid obesity due to excess calories E66.09 and Weight increase R63.5 [place] [id number] [place] [address] [id number] 05 Aug, 2015 High risk medication use Z79.899 ; Wellness examination Z00.00 and Encounter for immunization Z23 [facility] [address] [place] [address] [id number] Jul, [id number] [place] [address] [id number] Jun, [facility] [address]00565100[place] [address] May, [id number] [place] [address] [id number] May, [facility] [address] [id number], [place] [id number] Apr, [facility] [address] [id number], [place] [phone] Apr, Dental examination Z01.[address] [id number], [place] [id number] Mar, Dental examination V72.2 [facility] [address] [id number], [place] [id number] Feb, [facility] [address] [id number], [place] [id number] Feb, Tinea corporis 110.5 [facility] [address] [id number], [place] [id number] Feb, [facility] [address] [id number], [place] [phone] Jan, [facility] [address] [id number], [place] [id number] Jan, [facility] [address] [id number], [place] [phone] November, [facility] [address] [id number], [place] [phone] November, [facility] [address] [id number], [place] [phone] November, [facility] [address]00565100[place] [address] Oct, [facility] [address] [facility] [id number] [place] [address] Oct, [facility] [address] [id number], [place] [phone] Sep, [facility] [address] [facility] [id number] [place] [address] Sep, [facility] [address] [id number], [place] [phone] Aug, [facility] [address]00565100[place] [address] Aug, [facility] [address] [facility] [id number] [place] [id number] Jul, [facility] [address] [facility] [id number] [place] [address] Jul, [facility] [address] [facility] [id number] [place] [id number] Jun, [facility] [address] [facility] [id number] [place] [address] Jun, [facility] [address] [facility] [id number] [place] [id number] May, [facility] [address] [facility] [id number] [place] [address] May, [facility] [address]00565100[place] [address] Apr, [facility] [address] [facility] [id number], [place] [phone] Apr, [facility] [address] [facility] [id number] [place] [address] Apr, [facility] [address] [facility] [id number], [place] [id number] Apr, [facility] [address] [facility] [id number], [place] [id number] Jan, [facility] [address] [facility] [id number] [place] [address] Jan, [facility] [address] [facility] [id number], [place] [phone] Dec, [facility] [address] [facility] [id number] [place] [address] Dec, [facility] [address] [facility] [id number], [place] [id number] November, [facility] [address]00565100[place] [address] November, [facility] [address] [facility] [id number], [place] [id number] November, [facility] [address] [facility] [id number] [place] [address] November, [facility] [address] [id number], [place] [id number] Aug, [facility] [address] [facility] [id number] [place] [address] Aug, [facility] [address] [id number], [place] [phone] Jul, [facility] [address] [facility] [id number] [place] [address] Jul, [facility] [address] [facility] [id number], [place] [id number] Jul, [facility] [address]00565100[place] [address] Jul, [facility] [address] [facility] [id number], [place] [phone] Jun, [facility] [address] [facility] [id number] [place] [address] Jun, [facility] [address] [id number], [place] [id number] Jun, [facility] [address] [id number] [address] Jun, [facility] [address] [facility] [id number], [place] [id number] Apr, [facility] [address] [facility] [id number] [place] [address] Apr, [facility] [address] [facility] [id number], [place] [phone] Apr, [facility] [address] [facility] [id number] [place] [address] Apr, [facility] [address] [facility] [id number] [place] [address] Apr, [facility] [address] [facility] [id number] [place] [id number] 18 Apr, 2013 [facility] [address] [id number] [place] [address] 15 Apr, 2013 [facility] [address] [id number] [place] [id number] 15 Apr, 2013 [facility] [address] [id number] [place] [id number] 05 Mar, 2013 [facility] [address] [id number] [place] [phone] Feb, [facility] [address] [id number] [place] [id number] Feb, [facility] [address] [facility] [id number] [place] [address] May, [facility] [address] [id number] [address] 24 Jun, 2010 [facility] [id number] [place] [address]- [address] May, [facility] [address] [id number] [address]- [address] 27 Apr, 2010 [facility] [id number] [place] [address]- [address] Apr, [facility] [address]00565100[place] [address]- [address] 19 Apr, 2010 [facility] [address] [facility] [id number] [place] [address]- [address] Apr, [facility] [address] [facility] [id number] [place] [address]- [address] 15 Jun, 2009 [facility] [address] [facility] [id number] [place] [address]- [address] 15 Jun, 2009 [facility] [address] [facility] [id number] [place] 595356- [address] 14 Jun, 2009 [facility] [address] [facility] [id number] [place] [address]- [address] Jun, IMMUNIZATIONS No Known Immunizations SOCIAL HISTORY Never Assessed REASON FOR VISIT PLAN OF CARE Activity Details Follow Up prn Reason:recare VITAL SIGNS MEDICATIONS Medication Instructions Dosage Frequency Start Date End Date Duration Status Acanya 1.2-2.5 % Externally twice a day 1 application to affected area 12h 15 Feb, 2016 Active Omeprazole 20 mg Orally Once a day, NEEDS APPT BEFORE ANY FURTHER REFILLS 1 tablet Active Loratadine 10 mg Orally Once a day 1 tablet 24h 30 Active Wellbutrin XL 300 MG Orally Once a day in the morning 1 tablet 30 Active Advair Diskus 250-50 MCG/DOSE INHALE ONE (1) PUFF BY MOUTH TWICE DAILY ( APPROX. EVERY 12 HRS) Active Risperidone 1 MG Orally Once a day at bedtime 1 Tablet Active Ibuprofen 600 MG Orally 2 times a day PRN 1 tablet Dec, Active ProAir HFA 90 mcg/actuation inhale 2 puffs by Inhalation route every 6 hours as needed PRN shortness of breath/cough Apr, Active Meloxicam 15 MG Orally Once a day, NEEDS APPT BEFORE ANY FURTHER REFILLS take 1 tablet 90 Active Wellbutrin XL 300 MG Orally Once a day in the morning 1 tablet Apr, 30 days Active RESULTS No Results PROCEDURES Procedure Date Ordered Result Body Site [facility] SURFACE PRIMARY/PERM January 30, 2017 [facility] SURFACE PRIMARY/PERM January 30, 2017 Dental Outreach adjust balance January 30, 2017 Billing Notes on claim January 30, 2017 INSTRUCTIONS MEDICATIONS ADMINISTERED No Known Medications MEDICAL (GENERAL) HISTORY Type Description Date Medical History seasonal allergies Medical History acid reflux Medical History anxiety Medical History depression Medical History attention deficit hyperactivity disorder Medical History mild mental retardation Medical History Asthma Surgical History orthopedic surgery-right foot, corrective surgery
[2018-01-28 07:27] VITALS: BP 117/62
--- OUTSIDE RECORDS SUMMARY | 2018-01-28 07:27 | XMS REPORT ---
Author Author RENETTA DENNIS [facility] e[employer] Address Unknown Phone Unavailable Care Team Providers Care Computing Architect Name Role Phone RENETTA DENNIS CP Unavailable [...] Start Date End Date Status Dosage Omeprazole [facility] [address]-24 20 MG Orally Once a day May 06, 2014 1 capsule Advair Diskus [facility] [address]-50 250-50 MCG/DOSE Inhalation Twice a day January 26, 2015 1 puff Meloxicam [facility] [address]-53 15 MG Orally Once a day May 26, 2014 take 1 tablet Risperidone [facility] [address]-80 1 MG Orally Once a day at bedtime Aug 25, 2014 1 Tablet Carafate [facility] [address]-42 1 gram Orally Twice a day May 06, 2014 1 tablet Results No Known Results Summary Purpose eClinicalWorks Submission
--- OUTSIDE RECORDS SUMMARY | 2018-01-28 07:27 | XMS REPORT ---
Author Author SUPRIYA SINGLETARY [facility] Address [address] [place] [address] Care Team Providers Care Welding Machine Operator Submerged Arc Name Role Phone SUPRIYA SINGLETARY Unavailable PROBLEMS Type Condition ICD9-CM Code QRB81-DV Code Onset Dates Condition Status SNOMED Code Problem Right foot pain M79.671 Active 50913707 Problem Gastroesophageal reflux disease without esophagitis K21.9 Active 618607710 Problem Dysthymia F34.1 Active 61266487 Problem Encounter for dental examination Z01.20 Active 312647689 Problem Mild persistent asthma without complication J45.30 Active 685222413 Problem Over weight E66.3 Active 848846397 ALLERGIES Substance Reaction Event Type Date Status Penicillin V Potassium anaphylaxis Drug Allergy Jul, Active SOCIAL HISTORY Never Assessed PLAN OF CARE Activity Details Follow Up prn Reason: VITAL SIGNS Height 75 in 2016-08-14 Weight 289.6 lbs 2016-08-14 Temperature 98.4 degrees Fahrenheit 2016-08-14 Heart Rate 88 bpm 2016-08-14 Respiratory Rate 16 2016-08-14 BMI 36.19 kg/m2 2016-08-14 Blood pressure systolic 122 mmHg 2016-08-14 Blood pressure diastolic 68 mmHg 2016-08-14 MEDICATIONS Medication Instructions Dosage Frequency Start Date End Date Duration Status Ibuprofen 600 MG Orally 2 times a day PRN 1 tablet Dec, Active Acanya 1.2-2.5 % Externally twice a day 1 application to affected area 12h 15 Feb, 2016 Active Omeprazole 20 mg Orally Once a day, NEEDS APPT BEFORE ANY FURTHER REFILLS 1 tablet Active Loratadine 10 mg Orally Once a day 1 tablet 24h 30 days Active ProAir HFA 90 mcg/actuation inhale 2 puffs by Inhalation route every 6 hours as needed PRN shortness of breath/cough Apr, Active Risperidone 1 MG Orally Once a day at bedtime 1 Tablet Active Meloxicam 15 MG Orally Once a day, NEEDS APPT BEFORE ANY FURTHER REFILLS take 1 tablet 90 Active Advair Diskus 250-50 MCG/DOSE INHALE ONE (1) PUFF BY MOUTH TWICE DAILY ( APPROX. EVERY 12 HRS) Active Wellbutrin XL 300 MG Orally Once a day in the morning 1 tablet Apr, 30 days Active RESULTS No Results PROCEDURES No Known procedures IMMUNIZATIONS No Known Immunizations MEDICAL (GENERAL) HISTORY Type Description Date Medical History seasonal allergies Medical History acid reflux Medical History anxiety Medical History depression Medical History attention deficit hyperactivity disorder Medical History mild mental retardation Medical History Asthma Surgical History orthopedic surgery-right foot, corrective surgery
--- OUTSIDE RECORDS SUMMARY | 2018-01-28 07:27 | XMS REPORT ---
Author Author SUPRIYA SINGLETARY Organization [employer] Address Unknown Phone Unavailable Care Team Providers Care Sheriff'S Officer Name Role Phone SUPRIYA SINGLETARY CP Unavailable [...] Active Problem Over weight E66.3 Active Assessment Right foot pain M79.671 Active Problem Other general medical examination for administrative purposes V70.3 Active Problem Need for prophylactic vaccination and inoculation, Influenza V04.81 Active Problem Other follow-up examination V67.59 Active Medications Medication Code System Code Instructions Start Date End Date Status Dosage Ibuprofen [facility] [address]-39 600 MG Orally 2 times a day PRN January 04, 2014 1 tablet Results No Known Results Summary Purpose eClinicalWorks Submission
--- OUTSIDE RECORDS SUMMARY | 2018-01-28 07:27 | XMS REPORT ---
Author Author RENETTA DENNIS [facility] eClinical[employer] Address Unknown Phone Unavailable Care Team Providers Care Reading Assistant Name Role Phone RENETTA DENNIS Unavailable Allergies, Adverse Reactions, Alerts Substance Reaction Event Type Penicillin V Potassium anaphylaxis Drug Allergy Problems Problem Type Condition ICD-9 Code Onset Dates Condition Status Assessment Tinea corporis 110.5 Active Problem Asthma, unspecified, unspecified status 493.90 [...] Start Date End Date Status Dosage Risperidone [facility] [address]-04 1 MG Orally Once a day at bedtime Aug 25, 2014 1 Tablet Benzaclin [facility] [address]-90 1-5 % September 29, 2014 1 jenny by Topical route 2 times per day Advair Diskus [facility] [address]-60 250-50 MCG/DOSE Inhalation Twice a day January 26, 2015 1 puff Meloxicam [facility] [address]-81 15 mg May 26, 2014 take 1 tablet (15 mg) by oral route once daily Tylenol Extra Strength [facility] [address]-23 500 MG Orally 3 times a day prn pain or headache Sep 16, 2013 Take 1-2 tablets Omeprazole [facility] [address]-73 20 mg 1 DRC orally once a day May 06, 2014 1 capsule by Oral route 1 time per day Carafate [facility] [address]-60 1 gram May 06, 2014 1 tablet by Oral route 2 times per day Antacid Double Strength [facility] 04354-[address]26 400-400-40 mg Mar 07, 2013 1 Tablet 4 times per day Lotrisone [facility] [address]-73 1-0.05 % Externally Twice a day Mar 18, 2015 1 application to affected area ProAir HFA [facility] [address]-11 90 mcg/actuation May 06, 2014 inhale 2 puffs by Inhalation route every 6 hours as needed PRN shortness of breath/ cough Wellbutrin XL [facility] [address]-19 150 mg May 06, 2014 2 Tablet by Oral route 1 time per day Loratadine [facility] [address]-67 10 MG Orally Once a day Jul 13, 2014 1 tablet Ibuprofen [facility] [address]-24 600 mg January 04, 2014 take 1 tablet ( 600 mg) by oral route every 6 hours as needed with food Procedures Procedure Coding System Code Date Office Visit, Yarely Pt., Level 3 CPT-4 91974 Mar 18, 2015 Vital Signs Date/Time: Mar 18, 2015 Temperature 98.0 F Weight 270.0 lbs Height 75 in BMI 33.74 Index Blood Pressure Diastolic 80 mmHg Blood Pressure Systolic 120 mmHg Cardiac Monitoring Heart Rate 88 bpm Results No Known Results Summary Purpose eClinicalWorks Submission
--- OUTSIDE RECORDS SUMMARY | 2018-01-28 07:27 | XMS REPORT ---
Author Author NILESH LAMB [facility] Address [address] [place] [address] Phone Unavailable Care Team Providers Care Project Controls Scheduler Name Role Phone NILESH LAMB Unavailable Unavailable PROBLEMS Type Condition ICD9-CM Code TSJ27-TN Code Onset Dates Condition Status SNOMED Code Problem Dysthymia F34.1 Active 68653644 Problem Right foot pain M79.671 Active 58323506 Problem Over weight E66.3 Active 050550330 Problem Gastroesophageal reflux disease without esophagitis K21.9 Active 821103845 Problem Mild persistent asthma without complication J45.30 Active 665079246 ALLERGIES Substance Reaction Event Type Date Status Penicillin V Potassium anaphylaxis Drug Allergy Jun, Active ENCOUNTERS Encounter Location Date Diagnosis [facility] [id number] [place] [phone] Dec, [address] [id number] November, Diarrhea of presumed infectious origin R19.7 [facility] [id number] [place] [address] [phone] Oct, Encounter for dental exam and cleaning w/o abnormal findings Z01.20 [facility] [id number] [place] [address] [id number] Oct, Acute nasopharyngitis J00 [facility] [id number] [place] [address] [id number] 13 Aug, 2017 Mild persistent asthma without complication J45.30 ; Dysthymia F34.1 and Gastroesophageal reflux disease without esophagitis K21.[address] [id number] 08 Aug, 2017 Right foot pain M79.671 ; Encounter for screening for lipoid disorders Z13.220 and Encounter for screening for cardiovascular disorders Z13.6 [id number] [place] [address] [phone] Jul, [facility] [address] [id number], [place] [phone] Jul, [facility] [address] [id number][place] [phone] Jun, Dental examination Z01.20 [facility] [address] [id number], [place] [id number] Jun, Dental examination Z01.20 [facility] [address] [id number], [place] [id number] May, Encounter for immunization Z23 [facility] [address] [id number] [place] [address] Feb, [facility] [address] [id number], [place] [id number] Feb, Encounter for dental examination and cleaning without abnormal findings Z01.20 [facility] [address], [place] [address] Feb, [facility] [address] [id number], [place] [id number] Feb, Right foot pain M79.671 ; Dysthymia F34.1 ; Mild persistent asthma without complication J45.30 ; Gastroesophageal reflux disease without esophagitis K21.9 ; Encounter for screening for lipoid disorders Z13.220 ; Encounter for screening for cardiovascular disorders Z13.6 and Acne vulgaris L70.0 [facility] [id number][place] [phone] Jan, Dental examination Z01.20 [facility] [address] [id number], [place] 608605079 November, Dental examination Z01.20 [facility] [address] [id number], [place] [phone] November, Encounter for dental examination and cleaning without abnormal findings Z01.20 [facility] [address] [id number], [place] [phone] Aug, Dysthymia F34.1 ; Mild persistent asthma without complication J45.30 and Gastroesophageal reflux disease without esophagitis K21.9 [facility] [address] [id number], [place] [phone] Jul, Encounter for dental examination and cleaning without abnormal findings Z01.20 [facility] [address] [id number], [place] [address] Jul, Physical exam, routine Z00.00 [facility] [id number] [place] [address] [id number] Jul, Dysthymia F34.1 [facility] [address] [id number], [place] [phone] Jun, Dental examination Z01.20 [facility] [id number] [place] [address] [id number] Jun, [facility] [address] [id number], [place] [phone] Apr, Encounter for dental examination and cleaning without abnormal findings Z01.20 [facility] [address] [id number], [place] [phone] Apr, Encounter for dental examination Z01.20 [facility] [id number] [place] [address] [phone] Apr, Encounter for immunization Z23 [facility] [id number] [place] [address] [phone] Apr, [facility] [id number] [place] [address] [id number] Apr, Right foot pain M79.671 [facility] [id number] [place] [address] [id number] Feb, [facility] [id number] [place] [address] [id number] Feb, Dysthymia F34.1 [facility] [id number] [place] [address] [id number] Feb, Mild persistent asthma without complication J45.30 ; Dysthymia F34.1 ; Gastroesophageal reflux disease without esophagitis K21.9 ; Right foot pain M79.671 and Over weight E66.3 [facility] [address] [id number], [place] [id number] Feb, [facility] [address] [id number], [place] [id number] Feb, [facility] [address] [id number], [place] [id number] Jan, [facility] [address] [id number], [place] [phone] Jan, Encounter for dental examination and cleaning without abnormal findings Z01.20 [facility] [address] [id number], [place] [phone] Jan, [facility] [id number] [place] [address] [id number] Dec, Dental examination Z01.20 [facility] [id number] [place] [address] [id number] Oct, Dental examination Z01.20 [facility] [address] [id number], [place] [phone] Oct, Encounter for dental examination and cleaning with abnormal findings Z01.21 [facility] [address] [id number], [place] [id number] Sep, [facility] [address] [id number], [place] [phone] Aug, [facility] [address] [id number], [place] [id number] Aug, Elevated fasting glucose R73.01 [facility] [address] [id number], [place] [phone] Aug, Elevated fasting glucose R73.01 [facility] [address] [id number], [place] [id number] 08 Aug, 2015 Non morbid obesity due to excess calories E66.09 and Weight increase R63.5 [facility] [address] [id number], [place] [id number] 05 Aug, 2015 High risk medication use Z79.899 ; Wellness examination Z00.00 and Encounter for immunization Z23 [facility] [address] [id number], [place] [id number] Jul, [facility] [address] [id number], [place] [id number] Jun, [facility] [address] [facility] [id number], [place] [address] May, [facility] [address] [id number], [place] [id number] May, [facility] [address] [id number], [place] [phone] Apr, [facility] [id number], [place] [id number] Apr, Dental examination Z01.[address] [facility] [address] [id number], [place] [id number] Mar, Dental examination V72.2 [facility] [address] [id number], [place] [id number] Feb, [facility] [address] [id number], [place] [id number] Feb, Tinea corporis 110.5 [facility] [address] [id number], [place] [id number] Feb, [facility] [address] [id number], [place] [id number] Jan, [facility] [address] [id number], [place] [id number] Jan, [facility] [address] [id number], [place] [id number] November, [facility] [address] [id number], [place] [id number] November, [facility] [address] [id number], [place] [id number] November, [facility] [address] [facility] [id number], [place] 77[address]3980- [address] Oct, [facility] [address] [facility] [id number], [place] [address]393500- [address] Oct, [facility] [address] [id number], [place] [id number] Sep, [facility] [place] [facility] [address] [id number] [place] [address] Sep, [facility] [address] [id number] [place] [id number] Aug, [facility] [place] [facility] [address] [facility] [id number] [place] [address] Aug, [facility] [address] [id number], [place] [id number] Jul, [facility] [place] [facility] [address] [facility] [id number] [place] [address]- [address] Jul, [facility] [address] [id number] [place] [id number] Jun, [facility] [place] [facility] [address] [facility] [id number], [place] [address] Jun, [facility] [address] [id number], [place] [id number] May, [facility] [place] [facility] [address] [facility] [id number], [place] [address] May, [facility] [place] [facility] [address] [facility] [id number], [place] [address] Apr, [facility] [address] [id number], [place] [id number] Apr, [facility] [place] [facility] [address] [facility] [id number], [place] [address] Apr, [facility] [address] [id number], [place] [id number] Apr, [facility] [address] [id number] [place] [id number] Jan, [facility] [place] [facility] [address] [facility] [id number], [place] [address]- [address] Jan, [facility] [address] [id number] [place] [id number] Dec, [facility] [place] [facility] [address] [facility] [id number], [place] [address]- [address] Dec, [facility] [address] [id number] [place] [id number] November, [facility] [place] [facility] [address] [facility] [id number], [place] [address]- [address] November, [facility] [address] [facility] [id number] [place] [phone] November, [facility] [place] [facility] [address] [facility] [id number], [place] [address]- [address] November, [facility] [address] [id number] [place] [id number] Aug, [facility] [place] [facility] [address] [facility] [id number], [place] [address]- [address] Aug, [facility] [address] [facility] [id number] [place] [id number] Jul, [facility] [place] [facility] [address] [facility] [id number], [place] [address]- [address] Jul, [facility] [address] [facility] [id number] [place] [id number] Jul, [facility] [place] [facility] [address] [facility] [id number], [place] [address]- [address] Jul, [facility] [address] [facility] [id number] [place] [id number] Jun, [facility] [place] [facility] [address] [facility] [id number], [place] [address]- [address] Jun, [facility] [address] [facility] [id number], [place] [id number] Jun, [facility] [place] [facility] [address] [facility] [id number], [place] [address]- [address] Jun, [facility] [address] [facility] [id number] [place] [phone] Apr, [facility] [place] [facility] [address] [facility] [id number], [place] [address]- [address] Apr, [facility] [address] [id number] [place] [id number] Apr, [facility] [place] [facility] [address] [facility] [id number] [place] [address]46 Apr, [facility] [place] [facility] [address] [facility] [id number], [place] [address]- 2546 Apr, [facility] [address] [id number] [place] [id number] Apr, [facility] [place] [facility] [address] [facility] [id number], [place] [address]- [address]46 Apr, [facility] [address] [id number] [place] [id number] Apr, [facility] [address] [id number] [place] [id number] Mar, [facility] [address] [id number] [place] [id number] Feb, [facility] [address] [id number] [place] [id number] Feb, [facility] [place] [facility] [address] [facility] [id number], [place] [address]- [address] May, [facility] [place] [facility] [address] [facility] [id number], [place] [address]- [address] Jun, [facility] [place] [facility] [address] [id number], [place] [address]- [address] May, [facility] [place] [facility] [address] [facility] [id number], [place] [address]- [address] 27 Apr, 2010 [facility] [place] [facility] [address] [facility] [id number], [place] [address]- [address] Apr, [facility] [place] [facility] [address] [facility] [id number], [place] [address]- 66[address] Apr, [facility] [place] [facility] [address] [facility] [id number], [place] [address]- 8[address] Apr, [facility] [place] [facility] [address] [facility] [id number], [place] [address]- 5[address] Jun, [facility] [address] [facility] [id number], [place] [address]- [address] Jun, [facility] [address] [facility] [id number], [place] [address]- [address] Jun, [facility] [address] [facility] [id number], [place] [address]- [address] Jun, IMMUNIZATIONS No Known Immunizations SOCIAL HISTORY Never Assessed REASON FOR VISIT ADULT OUTREACH CLASS [facility] PLAN OF CARE Activity Details Follow Up 3 Months Reason:ON SITE RECALL VITAL SIGNS MEDICATIONS Medication Instructions Dosage Frequency Start Date End Date Duration Status Risperidone 1 MG Orally Once a day at bedtime 1 Tablet Active Acetaminophen 500 mg Orally 3 times a day 2 capsules as needed 8h Feb, Active Wellbutrin XL 300 mg Orally Once a day in the morning 1 tablet 30 Active Omeprazole 20 mg Orally Once a day, NEEDS APPT BEFORE ANY FURTHER REFILLS 1 tablet Active Meloxicam 15 MG Orally Once a day, NEEDS APPT BEFORE ANY FURTHER REFILLS take 1 tablet 90 Active ProAir HFA 108 (90 Base) mcg/act inhale 2 puffs by Inhalation route every 6 hours as needed PRN shortness of breath/cough Apr, Active Advair Diskus 250-50 mcg/dose INHALE ONE (1) PUFF BY MOUTH TWICE DAILY ( APPROX. EVERY 12 HRS) Active Loratadine 10 mg Orally Once a day 1 tablet 24h 90 Active Epiduo 0.1-2.5 % Externally 2 times a day as directed 12h 30 Active RESULTS No Results PROCEDURES Procedure Date Ordered Result Body Site PROPHYLAXIS - ADULT Jun 26, 2017 TOPICAL FLUORIDE VARNISH Jun 26, 2017 INSTRUCTIONS MEDICATIONS ADMINISTERED No Known Medications MEDICAL (GENERAL) HISTORY Type Description Date Medical History seasonal allergies Medical History acid reflux Medical History anxiety Medical History depression Medical History attention deficit hyperactivity disorder Medical History mild mental retardation Medical History Asthma Surgical History orthopedic surgery-right foot, corrective surgery
--- OUTSIDE RECORDS SUMMARY | 2018-01-28 07:28 | XMS REPORT ---
Author Author ALPA HA Organization [employer] Address Unknown Phone Unavailable Care Team Providers Care Account Information Clerk Name Role Phone ALPA HA CP Unavailable Allergies, Adverse Reactions, Alerts Substance [...] Start Date End Date Status Dosage Ibuprofen [facility] [address]-81 600 MG Orally every 6 hrs as needed January 04, 2014 take 1 tablet Clindamycin HCl [facility] [address]-32 not defined Loratadine [facility] [address]-52 10 MG Orally Once a day Jul 13, 2014 1 tablet Sucralfate [facility] [address]-76 not defined Clotrimazole-Betamethasone [facility] [address]-25 not defined Advair HFA [facility] [address]-26 not defined Procedures Procedure Coding System Code Date VERTICAL BITEWINGS - 7 TO 8 FILMS CPT-4 D0277 May 20, 2015 PROPHYLAXIS - ADULT CPT-4 D1110 May 20, 2015 PERIODIC ORAL EXAMINATION CPT-4 D0120 May 20, 2015 Vital Signs Date/Time: May 20, 2015 Blood Pressure Diastolic 69 mmHg Blood Pressure Systolic 109 mmHg Cardiac Monitoring Heart Rate 83 bpm Results No Known Results Summary Purpose [employer] Submission
[2018-01-28] MEDS ORDERED: CLINDAMYCIN 900 MG/50 ML IVPB 50 ML IV ONE ×2 (07:30→13:15)
[2018-01-28] MEDS ORDERED: LIDOCAINE/EPI 1%-1:200,000 (XYLOCAINE) 10 ML VIAL ONE (07:36)
[2018-01-28] MEDS: LACTATED RINGERS 1,000 ML IV PRN ×3 (08:00→13:10)
--- NOTE | 2018-01-28 08:15 | Progress Note-Pre Operative ---
Pre-Operative Progress Note H&P Reviewed The H&P was reviewed, patient examined and no changes noted. Time Seen by Provider: 08:09 Date H&P Reviewed: Jan 28, 2018 Time H&P Reviewed: 08:11 Pre-Operative Diagnosis: Incarcerated right inguinal hernia BRODERICK MIRZA DO Jan 28, 2018 08:15
[2018-01-28 08:21] LABS: BASOPHILS # (AUTO) 0.1 10^3/uL (0.0-0.1); BASOPHILS % (AUTO) 1 % (0-10); EOSINOPHILS # (AUTO) 0.2 10^3/uL (0.0-0.3); EOSINOPHILS % (AUTO) 2 % (0-10); HEMATOCRIT 42 % (40-54); HEMOGLOBIN 13.4 G/DL (13.3-17.7); LYMPHOCYTES # (AUTO) 2.2 X 10^3 (1.0-4.0); LYMPHOCYTES % (AUTO) 24 % (12-44); MEAN CORPUSCULAR HEMOGLOBIN 27 PG (25-34); MEAN CORPUSCULAR HGB CONC 32 G/DL (32-36); MEAN CORPUSCULAR VOLUME 85 FL (80-99); MONOCYTES # (AUTO) 0.9 X 10^3 (0.0-1.0); MONOCYTES % (AUTO) 9 % (0-12); NEUTROPHILS # (AUTO) 5.9 X 10^3 (1.8-7.8); NEUTROPHILS % (AUTO) 64 % (42-75); PLATELET COUNT 292 10^3/uL (130-400); RED BLOOD COUNT 4.93 10^6/uL (4.35-5.85); RED CELL DISTRIBUTION WIDTH 13.8 % (10.0-14.5); WHITE BLOOD COUNT 9.2 10^3/uL (4.3-11.0)
[2018-01-28] MEDS ORDERED: ROCURONIUM 10 MG/ML 5 ML SYRINGE IV ONE ×2 (08:38→10:10)
[2018-01-28] MEDS ORDERED: GLYCOPYRROLATE 0.2 MG/ML (ROBINUL) 2 ML VIAL ONE (08:38)
[2018-01-28] MEDS ORDERED: NEOSTIGMINE 1 MG/ML 5 ML SYRINGE ONE ×2 (08:38→13:47)
[2018-01-28] MEDS ORDERED: SEVOFLURANE (ULTANE) 15 ML INHAL SOLN ONE ×13 (08:38→13:47)
[2018-01-28] MEDS ORDERED: MIDAZOLAM 2 MG/2 ML (VERSED) VIAL ONE (08:38)
[2018-01-28] MEDS ORDERED: ONDANSETRON 4 MG/2 ML (SDV) Z0FRAN ONE ×2 (08:38→12:58)
[2018-01-28] MEDS ORDERED: fentaNYL INJECTION 100 MCG/2 ML AMP ONE ×2 (08:38→13:47)
[2018-01-28] MEDS ORDERED: LIDOCAINE PF 2% 5 ML (XYLOCAINE) VIAL ONE (08:38)
[2018-01-28] MEDS ORDERED: proPOfol 200 MG/20 ML (DIPRIVAN) VIAL IV ONE (08:38)
[2018-01-28] MEDS ORDERED: DEXAMETHASONE 10 MG/ML (DECADRON) 1 ML VIAL ONE (09:38)
[2018-01-28] MEDS ORDERED: morphine INJ 10 MG/ML 1ML (SYR OR VIAL) ONE (12:58)
[2018-01-28] MEDS ORDERED: LACTATED RINGERS 2,000 ML IV ONE (13:21)
--- NOTE | 2018-01-28 13:37 | Progress Note-Post Operative ---
Post-Operative Progess Note Surgeon (s)/Organic Lab Worker (s) Surgeon BRODERICK MIRZA DO Organic Lab Worker: Susana Pre-Operative Diagnosis Incarcerated right inguinal hernia Post-Operative Diagnosis Same large indirect with omentum stuck inside Procedure & Operative Findings Date of Procedure 01/28/18 Procedure Performed/Findings Laparoscopic Right Inguinal Hernia with the robot Anesthesia Type GET Estimated Blood Loss Estimated blood loss (mL): scant Specimens/Packing Specimens Removed none BRODERICK MIRZA DO Jan 28, 2018 13:37
[2018-01-28] MEDS ORDERED: HYDR-3820 PO (13:38)
--- NOTE | 2018-01-28 13:39 | Discharge Inst-Surgical ---
Discharge Inst-Surgical Depart Medication/Instructions New, Converted or Re-Newed RX: RX Given to Pt/Family Patient Instructions Follow up Appt: Make appointment for 1 week. Instructions: No lifting greater than 10 pounds. No strenuous activity. May shower in 24 hours, no tub bath or soaking. Use incentive spirometer at home as directed. No Smoking Skin/Wound Care: May remove bandages. You need to leave the white strips over incision on they will fall off on their own. Symptoms to Report: Appetite Changes, Extremity Discoloration, Numbness/Tingling, Swelling Increased , Bleeding Excessive, Eyesight Changes, Pain Increased, Urine Color Change, Constipation(Persistent), Fever over 101 degree F, Pain/Pressure in chest, Urinating Difficulty, Cough Up/Vomit Blood, Heart Beat Irreg/Pounding, Pain/ Pressure in jaw, Cramps in feet or legs, Lightheadedness, Pain/Pressure in shoulder, Diarrhea(Persistent), Memory Changes Suddenly, Questions/Concerns, Weight gain consecutive days, Dizziness/Fainting, Nausea/Vomiting, Shortness of Breath, Weight gain over 2 pounds If questions or concerns contact your physician Or seek help at emergency department. Activity Activity as Tolerated: Yes Activity Instructions: Avoid Pulling & Pushing, Avoid Stress to Incision Driving Instructions: No Driving/Refer to Dr. Frye Discharge Diet: No Restrictions Diet After 24 Hours: Clear Liquid if Nauseous If Any Problems/Questions/Issu: Contact Your Physician, Go to Emergency Room Skin/Wound Care Infection Signs and Symptoms: Increased Redness, Foul Odor of Wound, Increased Drainage, Skin Itchy or Has a Rash, Increased Swelling, Temperature Above 101 F Wound Care Comment: Expect some swelling and bruising into scrotum and even penis Stitches/Ildefonso/Dermabond Dis: Dermabond Ice Pack: Ice On and Off Site (as needed for pain) BRODERICK MIRZA DO Jan 28, 2018 13:39
[2018-01-28 15:05] VITALS: BP 137/98
[2018-01-28 15:40] VITALS: BP 122/90
--- NOTE | 2018-01-28 15:49 | Anesthesia-General Post-Op ---
General Patient Condition Mental Status/LOC: Same as Preop Cardiovascular: Satisfactory Nausea/Vomiting: Absent Respiratory: Satisfactory Pain: Controlled Complications: Absent Post Op Complications Complications None Follow Up Care/Instructions Patient Instructions None needed. Anesthesia/Patient Condition Patient Condition Patient is doing well, no complaints, stable vital signs, no apparent adverse anesthesia problems. No complications reported per nursing. EVELIN HICKEY CRNA Jan 28, 2018 15:49
[2018-01-28 16:45] VITALS: BP 125/80
[2018-01-28] MEDS ORDERED: HYDROcodone/APAP 10 MG/325 MG (LORTAB) TAB PO PRN (16:45)
[2018-01-28 17:42] VITALS: BP 125/80
--- NOTE | 2018-01-29 01:06 | OPERATIVE REPORT ---
DATE OF SERVICE: 01/28/2018 PREOPERATIVE DIAGNOSIS: Incarcerated right inguinal hernia. POSTOPERATIVE DIAGNOSES: 1. Incarcerated right inguinal hernia with indirect inguinal hernia. 2. Cord lipoma. PROCEDURES: 1. Laparoscopic right inguinal herniorrhaphy with mesh placement. 2. Excision of cord lipoma. SURGEON: BRODERICK MIRZA DO SLAB GRINDER: FINESSE MEZA DO ANESTHESIA: General endotracheal tube. SPECIMENS: None. BLOOD LOSS: Minimal. FLUIDS: Per anesthesia. POSTOPERATIVE CONDITION: Stable. INDICATION FOR PROCEDURE: The patient is a 27-year-old male who has pain in the inguinal region diagnosed as incarcerated right inguinal hernia with a fullness into the scrotum. FINDINGS: The patient had a very large indirect inguinal hernia with omentum stuck in there. He also had a cord lipoma. PROCEDURE NOTE: After informed consent was obtained, the patient was brought to the operating room, placed on table in supine position, sterilely prepped and draped in normal fashion. Local lidocaine was used to infiltrate the skin above the umbilicus. Made an incision with #11 blade, carried down through the skin and into subcutaneous tissue, then deepened down to subcutaneous tissue with Bovie electrocautery down to the fascia. Fascia incised with Bovie electrocautery, then bluntly entered the abdomen, swept a finger around and then placed 0 Vicryl [id number]-bv-qnhoa suture, placed 11 mm trocar port under direct visualization and created pneumoperitoneum. Then placed 2 more ports in normal fashion using local lidocaine, 11 blade for stab incision and then a da Braeden 8 mm ports about 5 to 10 cm away from the midline port, one on either side. Once these were placed then brought the robot in and docked the robot. The patient had been placed in Trendelenburg position. Upon entry, noted a large amount of omentum in the inguinal hernia, able to carefully start pulling this out. Once this was completely removed then elected to score the peritoneum starting from the medial umbilical ligament and then across laterally about 15 cm. Used the scissors on cautery to score this and then carefully started freeing up the preperitoneum going down finding the pubic tubercle and then going laterally across pulling the peritoneum down trying to stay preperitoneal with the stay away from the nerves and vascular structure. This took a while because he had a very friable peritoneum and he had a very large indirect hernia sac. Took over 2 hours just to try and dissect out the large indirect inguinal hernia sac trying to get it off the cord and cord structures. Finally, had to cut across this large sac to just remove it and left distal portion down into the scrotum. Able to finally remove this inguinal hernia sac off the cord and cord structures, taking down the attachment to the spermatic cord and then able to completely continue freeing this peritoneum down medially. I was able to get the critical view of the myopectineal orifice noted in the pubic tubercle, All ligament. Also encountered a large cord lipoma, able to carefully tease this off and then used some cautery to remove this. Once it was removed and the peritoneal reflection was completely pulled down, then placed a 11 x 16 3D Bard Echo mesh, pushed it down into the abdomen, sutured one to the pubic tubercle with a 3-0 Vicryl and sutured laterally up on the abdominal wall with another 3-0 Vicryl suture and then medially again along the rectus muscle with a 3-0 Vicryl to stay above the ASIS and out of this area. The mesh laid down nicely and then at this point free from the peritoneum, peritoneum was well below this and also had gotten 2 cm below the pubic tubercle. At this point, then used V-Loc suture running from lateral to the medial tying and then running back a few to tie to itself. Unfortunately, there were some holes in the peritoneum. These were closed with some ddywae-df-yerui 3-0 Vicryl suture. At the end of the case, there was no bleeding. This area looked good. Mesh looked good and allowed the pneumoperitoneum to escape gently watching the mesh lay out nicely behind the peritoneum. Undocked the robot and then removed all ports under direct visualization, allowed pneumoperitoneum to escape. Closed the umbilical incision, closed the fascia with 0 Vicryl suture previously placed. Copiously irrigated all incisions with normal saline, closing the midline incision with 3 interrupted 4-0 undyed Monocryl subcuticular stitches. Closed the two 8 mm incisions with a single 4-0 undyed Monocryl subcuticular stitch. Area was cleaned and dried. Dermabond placed as well as dressings. The patient then transferred to recovery room in stable condition. Sponge, instrument and needle count correct at the end of the case. Dr. Meza assisted in this case helping to place ports and then helped identify anatomy and then closed the incisions. Job ID: [id number] DocumentID: [id number] Dictated Date: 01/28/2018 17:26:53 Fisher Eel Spear Date: 01/28/2018 23:21:44 Dictated By: BRODERICK MIRZA DO
--- NOTE | 2018-02-20 11:02 | Progress Note-Standard ---
Standard Progress Note Progress Notes/Assess & Plan Date Seen by Provider: Jan 28, 2018 Time Seen by Provider: 09:20 Progress/Assessment & Plan Addendum to Anesthesia Record (01-28-18) On anesthesia record from 01-28-18, midazolam 2 mg IV was given at 0920 for anxiolysis on entry to the OR but was inadvertantly not documented. This midazolam 2 mg IV should have been documented on the anesthesia record, but this should serve as documentation of midazolam 2 mg IV given. ALEKSANDRA STORY DO Feb 20, 2018 11:02
== END 2018-01-28 17:42 | disposition home or self-care (01) ==
LOC: SDC 07:20
PROVIDERS: ATTEND Surgery
DX: K40.30 Unilateral inguinal hernia, with obstruction, without gangrene, not specified as recurrent (principal); D17.6 Benign lipomatous neoplasm of spermatic cord; J45.909 Unspecified asthma, uncomplicated; E66.01 Morbid (severe) obesity due to excess calories; Z68.38 Body mass index [BMI] 38.0-38.9, adult; Z79.899 Other long term (current) drug therapy
CPT/HCPCS: 36415; 82962; 85025; 87081; 94664

== ENCOUNTER 2021-12-01 08:04 | Emergency (ER) | payer MEDICAID ==
[~2021-12-01] VITALS: Ht 191 cm; Wt 143.0 kg
[~2021-12-01 08:04] MED LIST changes: +ACHYD1T PO; -OMEP20CA12 PO; +OMEP20CA18 PO; -RISP1TAB3 PO; +RISP1TAB93 PO
[2021-12-01] MEDS ORDERED: CYCLOBENZAPRINE 10 MG (FLEXERIL) TAB PO STA (08:21)
[2021-12-01] MEDS ORDERED: LIDOCAINE 4% (SALONPAS) PATCH TOP STA (08:21)
--- NOTE | 2021-12-01 08:21 | ED Back Pain ---
General Chief Complaint: Back Problems Stated Complaint: BACK PAIN Nursing Triage Note: This patient arrives via EMS non ambulatory stating that he has lower back pain. Source of Information: Patient Exam Limitations: No Limitations History of Present Illness Date Seen by Provider: December 01, 2021 Time Seen by Provider: 08:05 Initial Comments 41-year-old male with past medical history of ADHD, developmental delay, anxiety coming in due to low back pain. Sunday he was picking up something heavy, felt the pain in his lower back, has been constant, sharp, and more on the right lower back. Has taken Tylenol which is helped somewhat. Last took it last night. Has never had pain like this before. Says he felt too much pain to be able to get up out of bed this morning to go to the bathroom, so his family members called 911. He denies any fall, had normal bowel and bladder yesterday. Was walking yesterday with pain. He is otherwise denying any other acute complaints. Allergies and Home Medications Allergies Coded Allergies: Penicillins (Verified Allergy, Unknown, 01/25/18) Patient Home Medication List Home Medication List Reviewed: Yes Albuterol Sulfate (Proair Hfa) 1 Puff Puff, 2 PUFF IH Q4H PRN for SHORTNESS OF BREATH, (Reported) Entered as Reported by: DELMY REYES on 01/25/18 1328 Bupropion HCl (Wellbutrin Xl) 300 Mg Tab.er.24h, 300 MG PO DAILY, (Reported) Entered as Reported by: DELMY REYES on 01/25/18 1328 Fluticasone/Salmeterol (Advair 250-50 Diskus) 1 Each Blst.w.dev, 1 PUFF IH BID, (Reported) Entered as Reported by: DELMY REYES on 01/25/18 1328 Hydrocodone Bit/Acetaminophen (HYDROcodone/APAP 10/325 TABLET) 1 Each Tablet, 1 TAB PO Q6H Prescribed by: BRODERICK MIRZA on 01/28/18 1338 Loratadine (Loratadine) 10 Mg Tablet, 10 MG PO HS, (Reported) Entered as Reported by: DELMY REYES on 01/25/18 1328 Meloxicam (Meloxicam) 15 Mg Tablet, 15 MG PO DAILY, (Reported) Entered as Reported by: DELMY REYES on 01/25/18 1328 Omeprazole (Omeprazole) 20 Mg Capsule.dr, 20 MG PO DAILY, (Reported) Entered as Reported by: DELMY REYES on 01/25/18 132 Risperidone (Risperidone) 1 Mg Tablet, 1 MG PO HS, (Reported) Entered as Reported by: DELMY REYES on 01/25/18 1328 Review of Systems Constitutional: No chills, No fever EENTM: No blurred vision Respiratory: no symptoms reported Cardiovascular: no symptoms reported Gastrointestinal: no symptoms reported Genitourinary: no symptoms reported Musculoskeletal: back pain Skin: no symptoms reported Psychiatric/Neurological: No Symptoms Reported All Other Systems Reviewed Negative Unless Noted: Yes Past Yprfahz-Zhvhjx-Lrjwhg Hx Patient Social History Tobacco Use?: No Smoking Status: Never a Smoker Smokeless Tobacco Frequency: Never a User Use of E-Cig and/or Vaping dev: No Use of E-Cig and/or Vaping Paul: Never a User Substance use?: No Alcohol Use?: No Immunizations Up To Date First/Initial COVID19 Vaccinat: Unknown Seasonal Allergies Seasonal Allergies: Yes Past Medical History Surgeries: Yes (club foot, inguinal hernia repair) Asthma Developmental Disorder Abdominal Hernia, Gastroesophageal Reflux ADD/ADHD, Anxiety, Depression Physical Exam Vital Signs Vital Signs - First Documented 12/01/21 08:04 Temp 36.9 Pulse 79 Resp 20 B/P (MAP) 134/82 (99) O2 Delivery Room Air Capillary Refill : Less Than 3 Seconds Height, Weight, BMI Height: 6'4.00" Weight: 308lbs. 0.0oz. [id number]; 39.00 BMI Method: General Appearance: No Apparent Distress, WD/WN HEENT: PERRL/EOMI, Normal ENT Inspection, Pharynx Normal Neck: Full Range of Motion, Normal Inspection, Non Tender, Supple Cardiovascular: Regular Rate, Rhythm, No Edema, Normal Peripheral Pulses Respiratory: Chest Non Tender, Lungs Clear, Normal Breath Sounds, No Accessory Muscle Use, No Respiratory Distress Gastrointestinal: Normal Bowel Sounds, Non Tender, Soft; No Distended, No Guarding Back: Normal Inspection, No CVA Tenderness, No Vertebral Tenderness, Other (paravertebral tenderness right lower back, negative straight leg raise and reverse straight leg raise) Extremity: Normal Capillary Refill, Normal Inspection, Normal Range of Motion, Non Tender, No Calf Tenderness, No Pedal Edema Neurologic/Psychiatric: Alert, Oriented x3, No Motor/Sensory Deficits, Normal Mood/Affect, Other (2+ patellar reflex, 5 out of 5 strength with hip flexion, knee extension and flexion, foot dorsiflexion and plantarflexion) Skin: Normal Color, Warm/Dry Lymphatic: No Adenopathy Progress/Results/Core Measures Results/Orders My Orders Orders - AJIT ELLIOTT MD Lumbar Spine - 2-3 Views (12/01/21 08:21) Acetaminophen Tablet (Tylenol Tablet) (12/01/21 08:30) Cyclobenzaprine Tablet (Flexeril Tablet) (12/01/21 08:21) Lidocaine 4% Patch (Salonpas 4% Patch) (12/01/21 08:21) Gabapentin Capsule/Tablet (Neurontin Cap (12/01/21 08:30) Ketorolac Injection (Toradol Injection) (12/01/21 08:27) Medications Given in ED Current Medications Medications Dose Ordered Sig/Brian Route Start Time Stop Time Status Last Admin Dose Admin Acetaminophen 1,000 mg ONCE ONCE PO 12/01/21 08:30 12/01/21 08:31 DC 12/01/21 08:36 1,000 MG Gabapentin 300 mg ONCE ONCE PO 12/01/21 08:30 12/01/21 08:31 DC 12/01/21 08:36 300 MG Vital Signs/I&O 12/01/21 12/01/21 08:04 08:36 Temp 36.9 36.6 Pulse 79 Resp 20 B/P (MAP) 134/82 (99) O2 Delivery Room Air Blood Pressure Mean: 99 Progress Progress Note : Progress Note 31-year-old male with above history coming in due to nontraumatic low back pain. ABCs were intact and vitals were stable on presentation. He has no midline tenderness, no fever, no red flags such as IV drug use or history of diabetes. Normal neuro exam today. He urinated and afterwards I did a naedj-gd-eern ultrasound showing a completely decompressed bladder which is reassuring. Given symptomatic medications including Toradol, Tylenol, Flexeril, gabapentin, lidocaine patch. Patient feeling better on repeat evaluation. X-ray negative for any acute findings. There was an order finding in his coccyx, however he has no tenderness there, and has not had any falls. I believe he is stable for discharge with outpatient follow-up. He was sent home with strict return precautions Diagnostic Imaging Diagonstic Imaging: Xray (lumbar spine) Comments [facility] [place] [facility] [place], [place] NAME: LORENE SOTELO [facility] REC#: [id number] PT STATUS: REG ER : 1990 PHYSICIAN: AJIT ELLIOTT MD ADMIT DATE: 12/01/21/ER Draft Date of Exam:12/01/21 LUMBAR SPINE - 2-3 VIEWS INDICATION: Low back pain. No priors. FINDINGS: The lumbar vertebral statures are normal. Alignment is anatomic. There is deformity of well corticated and smoothly marginated at the mid to upper coccyx this likely is chronic, but correlate with any new lower tailbone pain. There is mild spondylosis and disc space narrowing at the L5-S1 level where there is facet arthrosis. No acute appearing abnormality. IMPRESSION: 1. Some mild lumbosacral junction degenerative disease. Normal lumbar alignment. Normal lumbar statures. No acute lumbar pathology. 2. Deformity of the coccyx of uncertain acuity correlate with any new injury or pain to the lower tailbone. Dictated on workstation # [id number] Dict: 12/01/21912 Trans: 12/01/21916 [id number] Interpreted by: DELVIS CLEARY Electronically signed by: Departure Impression Primary Impression: Low back pain Qualified Codes: M54.50 - Low back pain, unspecified Disposition: 01 HOME, SELF-CARE Condition: Improved Departure-Patient Inst. Decision time for Depature: 09:25 Referrals: SUPRIYA SINGLETARY (PCP) Primary Care Physician GERRI LUNA MD Patient Instructions: Low Back Pain ED Add. Discharge Instructions: I have sent prescription ibuprofen and Tylenol to your pharmacy. You can also try the lidocaine patch and the muscle relaxer. Do not drive if you are taking the muscle relaxer. Follow-up with the bone doctor here in [facility], Dr. Luna if things are not improving in the next couple weeks. Scripts Acetaminophen (Tylenol Extra Strength) 500 Mg Tablet 1000 MG PO Q6H for 5 Days, #40 TAB Prov: AJIT ELLIOTT MD 12/01/21 Lidocaine (Lidocaine 5% Patch) 5 % Adh..patch 1 EACH TP Q12H PRN for Neuropathic pain MDD 2 for 7 Days, #14 PATCH 2 patches max for 12 hours, then 12 hours patch-free period. Prov: AJIT ELLIOTT MD 12/01/21 Ibuprofen (Ibuprofen) 600 Mg Tablet 600 MG PO Q6H PRN for PAIN-MILD for 7 Days, #28 TAB Prov: AJIT ELLIOTT MD 12/01/21 Cyclobenzaprine HCl (Cyclobenzaprine HCl) 10 Mg Tablet 10 MG PO BID PRN for SPASMS for 5 Days, #10 TAB Prov: AJIT ELLIOTT MD 12/01/21 Work/School Note: Work Release Form Date Seen in the Emergency Department: December 01, 2021 Return to Work: December 02, 2021 Restrictions: No Restrictions AJIT ELLIOTT MD December 01, 2021 08:21
[2021-12-01] MEDS ORDERED: KETOROLAC 30 MG/ML VIAL IM STA (08:27)
[2021-12-01] MEDS ORDERED: ACETAMINOPHEN 500 MG TAB (TYLENOL) PO ONE (08:30)
[2021-12-01] MEDS ORDERED: GABAPENTIN 300 MG (NEURONTIN) CAP PO ONE (08:30)
[2021-12-01] MEDS ORDERED: KETOROLAC 15 MG/ML VIAL IVP ONE (08:30)
--- NOTE | 2021-12-01 09:18 | Diagnostic Imaging Report ---
INDICATION: Low back pain. No priors. FINDINGS: The lumbar vertebral statures are normal. Alignment is anatomic. There is deformity of well corticated and smoothly marginated at the mid to upper coccyx this likely is chronic, but correlate with any new lower tailbone pain. There is mild spondylosis and disc space narrowing at the L5-S1 level where there is facet arthrosis. No acute appearing abnormality. IMPRESSION: 1. Some mild lumbosacral junction degenerative disease. Normal lumbar alignment. Normal lumbar statures. No acute lumbar pathology. 2. Deformity of the coccyx of uncertain acuity correlate with any new injury or pain to the lower tailbone. Dictated by: Dictated on workstation # [id number]
[2021-12-01] MEDS ORDERED: IBUP-1773 PO (09:32)
[2021-12-01] MEDS ORDERED: CYCL10TA25 PO (09:32)
[2021-12-01] MEDS ORDERED: ACET-2267 PO (09:32)
[2021-12-01] MEDS ORDERED: LIDO700A45 TP (09:32)
[2021-12-01 09:46] VITALS: BP 134/82
== END 2021-12-01 09:44 | disposition home or self-care (01) ==
LOC: EDUNIT# 08:04 → ER 08:05
DX: M54.50 Low back pain, unspecified (principal); X50.0XXA Overexertion from strenuous movement or load, initial encounter
CPT/HCPCS: 72100